=== PATIENT | male | born 1985 | race Two or more races ===

== ENCOUNTER 2019-06-26 16:45 | Inpatient (IN) | payer SELFPAY ==
[~2019-06-26] VITALS: Ht 170.2 cm; Wt 105.2 kg
[2019-06-26] MEDS ORDERED: IV NORMAL SALINE 1000ML BAG 1,000 ML IV ONE ×2 (17:45)
[2019-06-26] MEDS ORDERED: DIPHTH,PERTUSS(ACELL),TET TOX 0.5 ML DISP.SYRIN. VAX IM ONE (17:45)
[2019-06-26 17:49] LABS: BASO # 0.1 x10^3/uL (0.0-0.2); BASO % 1 % (0-3); EOS # 0.2 x10^3/uL (0.0-0.7); EOS % 2 % (0-3); HEMATOCRIT 44.2 % (39.0-53.0); HEMOGLOBIN 15.3 g/dL (13.0-17.5); LYMPH % 14 % (24-48); MEAN CORPUSCULAR HEMOGLOBIN 32 pg (25-35); MEAN CORPUSCULAR HGB CONC 35 g/dL (31-37); MEAN CORPUSCULAR VOLUME 92 fL (79-100); MONO # 1.1 x10^3/uL (0.0-1.1); MONO % 8 % (0-9); NEUT # 10.8 x10^3/uL (1.8-7.7); NEUT % 76 % (31-73); PLATELET COUNT 339 x10^3/uL (140-400); RED BLOOD COUNT 4.82 x10^6/uL (4.30-5.70); RED CELL DISTRIBUTION WIDTH 12.8 % (11.5-14.5); WHITE BLOOD COUNT 14.2 x10^3/uL (4.0-11.0)
--- NOTE | 2019-06-26 17:52 | RAD ---
Two-view right tibia-fibula dated 06/26/2019. No comparison available. Clinical data indication: Cellulitis post laceration. FINDINGS: 2 views left tibia fibula show normal bony alignment. No displaced fracture. No periostitis or bone destruction. There is diffuse soft tissue swelling. IMPRESSION: Soft tissue swelling with no evidence of underlying acute bony abnormality. Electronically signed by: Vinayak Robbins MD (06/26/2019 5:50 PM) [facility]
--- NOTE | 2019-06-26 17:55 | PHYS DOC ---
Past Medical History Past Medical History: No Pertinent History Past Surgical History: No Surgical History Alcohol Use: Heavy Drug Use: Marijuana Adult General Chief Complaint Chief Complaint: CELLULITIS HPI HPI Patient is a 34 year old male who presents with states on April 22 he kicked through window and got a laceration to the back of the right leg which he states he thought healed up fine and then towards the end of April he stated that the leg began to swell and become reddened and itchy and painful. Patient is complaining of pain especially when he is walking or standing on the leg behind the knee. Patient states the rash has now spread to the left lower leg and bilateral forearms. He states they are burning and itching. He rates his pain a 7 out of 10. Review of Systems Review of Systems Constitutional: fever or chills [] Musculoskeletal: Cellulitis to bilateral legs and bilateral forearms causing pain. Denies back pain or joint pain [] Integument: Bilateral cellulitis to legs and forearms. Denies rash or skin lesions [] All other systems were reviewed and found to be within normal limits, except as documented in this note. Current Medications Current Medications Current Medications Medications (Trade) Dose Ordered Sig/Justo Start Time Stop Time Status Last Admin Dose Admin Diphtheria/ Tetanus/Acell Pertussis (Boostrix) 0.5 ml ONCE ONCE 06/26/19 17:45 06/26/19 17:46 DC Dobutamine HCl/ Dextrose 250 ml @ 0 mls/hr CONT PRN 06/26/19 18:15 Cancel Fentanyl Citrate (Fentanyl 2ml Vial) 50 mcg 1X ONCE 06/26/19 18:00 06/26/19 18:01 DC 06/26/19 18:07 50 MCG Ondansetron HCl (Zofran) 4 mg 1X ONCE 06/26/19 18:00 06/26/19 18:01 DC 06/26/19 18:06 4 MG Sodium Chloride 1,000 ml @ 1,000 mls/hr 1X ONCE 06/26/19 17:45 06/26/19 18:44 DC Vancomycin HCl (Vanco Per Pharmacy) 1 each PRN DAILY PRN 06/26/19 18:15 UNV Vancomycin HCl 2 gm/Sodium Chloride 500 ml @ 250 mls/hr 1X ONCE 06/26/19 18:15 06/26/19 20:14 Allergies Allergies Allergies Coded Allergies Type Severity Reaction Last Updated Verified No Known Drug Allergies 06/26/19 No Physical Exam Physical Exam Constitutional: Well developed, well nourished, no acute distress, non-toxic appearance. [] Skin: Bilateral cellulitis to lower legs and forearms. Flaking of skin. Warm, dry, no erythema, no rash. [] Extremities: No tenderness, no cyanosis, no clubbing, ROM intact, right lower leg 3+ and left lower leg 1+ edema. [] Neurologic: Alert and oriented X 3, normal motor function, normal sensory function, no focal deficits noted. [] Psychologic: Affect normal, judgement normal, mood normal. [] Current Patient Data Vital Signs Vital Signs Date Time Temp Pulse Resp B/P (MAP) Pulse Ox O2 Delivery O2 Flow Rate FiO2 06/26/19 17:16 98.5 110 22 140/85 (103) 96 Room Air 98.5 Lab Values Laboratory Tests Test 06/26/19 17:40 06/26/19 18:05 White Blood Count 14.2 x10^3/uL (4.0-11.0) H Red Blood Count 4.82 x10^6/uL (4.30-5.70) Hemoglobin 15.3 g/dL (13.0-17.5) Hematocrit 44.2 % (39.0-53.0) Mean Corpuscular Volume 92 fL (79-100) Mean Corpuscular Hemoglobin 32 pg (25-35) Mean Corpuscular Hemoglobin Concent 35 g/dL (31-37) Red Cell Distribution Width 12.8 % (11.5-14.5) Platelet Count 339 x10^3/uL (140-400) Neutrophils (%) (Auto) 76 % (31-73) H Lymphocytes (%) (Auto) 14 % (24-48) L Monocytes (%) (Auto) 8 % (0-9) Eosinophils (%) (Auto) 2 % (0-3) Basophils (%) (Auto) 1 % (0-3) Neutrophils # (Auto) 10.8 x10^3/uL (1.8-7.7) H Lymphocytes # (Auto) 2.0 x10^3/uL (1.0-4.8) Monocytes # (Auto) 1.1 x10^3/uL (0.0-1.1) Eosinophils # (Auto) 0.2 x10^3/uL (0.0-0.7) Basophils # (Auto) 0.1 x10^3/uL (0.0-0.2) Prothrombin Time 12.4 SEC (11.7-14.0) Prothrombin Time INR 1.0 (0.8-1.1) Sodium Level 140 mmol/L (136-145) Potassium Level 3.4 mmol/L (3.5-5.1) L Chloride Level 103 mmol/L (98-107) Carbon Dioxide Level 23 mmol/L (21-32) Anion Gap 14 (6-14) Blood Urea Nitrogen 8 mg/dL (8-26) Creatinine 1.0 mg/dL (0.7-1.3) Estimated GFR (Cockcroft-Gault) 86.1 BUN/Creatinine Ratio 8 (6-20) Glucose Level 107 mg/dL (70-99) H Lactic Acid Level 2.5 mmol/L (0.4-2.0) H Calcium Level 9.0 mg/dL (8.5-10.1) Total Bilirubin 0.3 mg/dL (0.2-1.0) Aspartate Amino Transferase (AST) 35 U/L (15-37) Alanine Aminotransferase (ALT) 32 U/L (16-63) Alkaline Phosphatase 80 U/L (46-116) Creatine Kinase 771 U/L (39-308) H Total Protein 8.2 g/dL (6.4-8.2) Albumin 4.0 g/dL (3.4-5.0) Albumin/Globulin Ratio 1.0 (1.0-1.7) Procalcitonin < 0.10 ng/mL (0.00-0.10) Urine Collection Type Unknown Urine Color Yellow Urine Clarity Clear Urine pH 6.0 Urine Specific [place] 1.010 Urine Protein Negative mg/dL (NEG-TRACE) Urine Glucose (UA) Negative mg/dL (NEG) Urine Ketones (Stick) Negative mg/dL (NEG) Urine Blood Negative (NEG) Urine Nitrite Negative (NEG) Urine Bilirubin Negative (NEG) Urine Urobilinogen Dipstick 0.2 mg/dL (0.2 mg/dL) Urine Leukocyte Esterase Negative (NEG) Urine RBC 0 /HPF (0-2) Urine WBC 0 /HPF (0-4) Urine Bacteria 0 /HPF (0-FEW) Urine Mucus Slight /LPF Laboratory Tests 06/26/19 17:40 Laboratory Tests 06/26/19 17:40 EKG EKG NSR[] Interpretation Time: [address] Washburn Radiology/Procedures Radiology/Procedures [] Impressions: [id number] [place] [address] IMAGING REPORT Signed PATIENT: SHONNA VALDOVINOS ACCOUNT: [id number] : 1985 LOCATION: ER AGE: 34 SEX: M EXAM STATUS: PRE ER ORD. PHYSICIAN: RICHARD CHRISTIAN APRN REASON: Cellulitis post laceration to calf PROCEDURE: TIBIA FIBULA RIGHT Two-view right tibia-fibula dated 06/26/2019. No comparison available. Clinical data indication: Cellulitis post laceration. FINDINGS: 2 views left tibia fibula show normal bony alignment. No displaced fracture. No periostitis or bone destruction. There is diffuse soft tissue swelling. IMPRESSION: Soft tissue swelling with no evidence of underlying acute bony abnormality. Electronically signed by: Vinayak Robbins MD (06/26/2019 5:50 PM) [facility] DICTATED and SIGNED BY: VINAYAK ROBBINS MD DATE: 06/26/19 [id number] [place] [address] IMAGING REPORT Signed PATIENT: SHONNA VALDOVINOS ACCOUNT: [id number] : 1985 LOCATION: ER AGE: 34 SEX: M EXAM STATUS: REG ER ORD. PHYSICIAN: RICHARD CHRISTIAN APRN REASON: right leg swelling PROCEDURE: VENOUS LOWER EXTREMITY RIGHT Examination: VENOUS LOWER EXTREMITY RIGHT History: Right leg swelling Comparison/Correlation: None FINDINGS: Right lower extremity duplex venous ultrasound exam was performed. Grayscale, color Doppler, and spectral Doppler imaging was performed. Compression and augmentation was performed. The right common femoral vein, superficial femoral vein, popliteal vein, and greater saphenous vein are normal with no evidence of deep venous thrombus. Normal compressibility and augmentation is evident. Right groin lymph node is present with normal echogenicity, contours and a fatty hilum. Smaller right groin lymph nodes also are present. IMPRESSION: No evidence of deep venous thrombus involving the right lower extremity. Right groin lymph nodes are presumably reactive. Electronically signed by: Tae Huerta MD (06/26/2019 6:45 PM) [facility] DICTATED and SIGNED BY: TAE HUERTA MD DATE: 06/26/19 184 Course & Med Decision Making Course & Med Decision Making Right lower leg is reddened from the knee down to the foot with open blisters. There is 3+ swelling in the leg. Patient denies any numbness or tingling but is tender to palpation the whole leg. Due to swelling and was unable to feel a pulse in the pedal. I have ordered an ultrasound. Cap refill seconds. Patient states that 2 weeks ago he ran a fever for about a week that has since gone away. Patient left leg is one plus swollen with a red rash to the lower part of the leg but the whole leg is not reddened compared to the right leg. Pedal pulses strong and present. The rash or cellulitis to the left leg is red and flaking of skin. Bilateral forearms have a red patchy rash that looks to be cellulitis with flaky skin. Patient states very itchy. Lungs are clear to auscultation all lobes. EKG is normal sinus rhythm. Alert And oriented. Ambulatory with a steady gait. Denies abdominal pain, nausea, vomiting, headache, dizziness, diarrhea, numbness or tingling, chest pain, shortness of air. Patient meets sepsis criteria. He has gotten fluids and antibiotics. Dragon Disclaimer Dragon Disclaimer This electronic medical record was generated, in whole or in part, using a voice recognition dictation system. Date and Time of Reassessment Date: Jun 26, 2019 Time: 18:07 Fluid Challenge Is the fluid challenge complet: No IBW Target Volume Used: No BMI > 30: Yes Vital Signs Vital Signs: Vital Signs Date Time Temp Pulse Resp B/P (MAP) Pulse Ox O2 Delivery O2 Flow Rate FiO2 06/26/19 17:16 98.5 110 22 140/85 (103) 96 Room Air 98.5 Temperature Source: Oral Respirations Respiratory Effort: Normal Respiratory Pattern: Normal Cardiovascular Pulse Rhythm: Regular Heart: Nml rate, reg. rhythm Lung Sounds Breath Sounds: Clear Capillary Refil Capillary Refill: Rt Hand > 3 seconds Peripheral Pulse Pulse Location: Radial Pulse Strength: Normal (2+) Pulse Assessment Method: Monitor Integumentary Skin: Warm Skin Moisture: Dry Skin Turgor: Normal Skin Color: warm Fingernail Color: WNL Departure Departure Impression: Primary Impression: Sepsis Additional Impression: Cellulitis Disposition: 09 ADMITTED INPATIENT Admitting Physician: TEE Condition: STABLE Problem Qualifiers Primary Impression: Sepsis Sepsis type: sepsis due to unspecified organism Sepsis acute organ dysfunction status: unspecified Qualified Codes: A41.9 - Sepsis, unspecified organism Additional Impression: Cellulitis Site of cellulitis: extremity Site of cellulitis of extremity: lower extremity Laterality: unspecified laterality Qualified Codes: L03.119 - Cellulitis of unspecified part of limb RICHARD CHRISTIAN [employer] Jun 26, 2019 17:55
[2019-06-26 17:58] LABS: PROTHROMBIN TIME PATIENT 12.4 SEC (11.7-14.0)
[2019-06-26] MEDS ORDERED: ONDANSETRON PF 4 MG/2 ML VIAL. IV ONE (18:00)
[2019-06-26] MEDS ORDERED: fentaNYL PF VIAL 100 MCG/2 ML VIAL IVP ONE (18:00)
[2019-06-26 18:09] LABS: GFR 86.1; POTASSIUM 3.4 mmol/L (3.5-5.1)
[2019-06-26] MEDS ORDERED: VANCOMYCIN 2 GM in IV NORMAL SALINE 500ML BAG 500 ML IV ONE (18:15)
[2019-06-26 18:16] LABS: TOTAL BILIRUBIN 0.3 mg/dL (0.2-1.0); TOTAL PROTEIN 8.2 g/dL (6.4-8.2)
[2019-06-26 18:27] LABS: BILIRUBIN,URINE NEGATIVE (NEG); CLARITY,URINE CLEAR; COLOR,URINE YELLOW; NITRITE,URINE NEGATIVE (NEG); PROTEIN,URINE NEGATIVE (NEG-TRACE); UROBILINOGEN,URINE 0.2 mg/dL (0.2 mg/dL)
[2019-06-26 18:44] LABS: BACTERIA,URINE 0 /HPF (0-FEW); RBC,URINE 0 /HPF (0-2); WBC,URINE 0 /HPF (0-4)
--- NOTE | 2019-06-26 18:48 | RAD ---
Examination: VENOUS LOWER EXTREMITY RIGHT History: Right leg swelling Comparison/Correlation: None FINDINGS: Right lower extremity duplex venous ultrasound exam was performed. Grayscale, color Doppler, and spectral Doppler imaging was performed. Compression and augmentation was performed. The right common femoral vein, superficial femoral vein, popliteal vein, and greater saphenous vein are normal with no evidence of deep venous thrombus. Normal compressibility and augmentation is evident. Right groin lymph node is present with normal echogenicity, contours and a fatty hilum. Smaller right groin lymph nodes also are present. IMPRESSION: No evidence of deep venous thrombus involving the right lower extremity. Right groin lymph nodes are presumably reactive. Electronically signed by: Tae Zavala MD (06/26/2019 6:45 PM) [facility]
[2019-06-26] MEDS ORDERED: PIP/TAZO PER PHARMACY MC PRN (19:00)
[2019-06-26 19:15] LABS: AMPHETAMINE/METHAMPHETAMINE POS (NEG); BARBITURATES NEG (NEG); BENZODIAZEPINES NEG (NEG); CANNABINOIDS POS (NEG); COCAINE NEG (NEG); METHADONE NEG (NEG); OPIATES NEG (NEG); PHENCYCLIDINE NEG (NEG)
[2019-06-26] MEDS ORDERED: PIPERACILLIN/TAZOBACTAM 3.375 GM in IV NORMAL SALINE 50ML 50 ML IV ONE (19:15)
[2019-06-26] MEDS ORDERED: ONDANSETRON PF 4 MG/2 ML VIAL. IV PRN (19:30)
[2019-06-26] MEDS ORDERED: ACETAMINOPHEN 325 MG TABLET. PO PRN (19:30)
[2019-06-26] MEDS: fentaNYL PF VIAL 100 MCG/2 ML VIAL IV PRN (20:06)
[2019-06-26] MEDS: IV NORMAL SALINE 1000ML BAG 1,000 ML IV SCH (20:07)
[2019-06-26 20:30] VITALS: BP 136/87
[2019-06-26] MEDS: VANCOMYCIN PER PHARMACY MC PRN (20:48)
--- NOTE | 2019-06-26 20:57 | NUR ---
Pharmacy Vancomycin Dosing Note S:Consulted to monitor and dose vancomycin started 06/26/19. O:SHONNA VALDOVINOS is a 34 year old M with Cellulitis . Height: 5 feet, 6 inches Weight: 102.438967 kg [place] Body Weight: 63.80 Adjusted Body Weight: 79.12 Dosing Weight: Actual Other Antibiotics: LABS: Last BUN: 8 Last Creatinine: 1.0 Creatinine Clearance: 117 mL/min Last WBC: 14.2 Last Procalcitonin: Tmax (past 24 hours): 98.5 Microbiology: I/O: Drug Levels: Last level: on at Last dose given 06/26/19 at 1914 Vancomycin Dosing: Loading Dose: 2000 mg x1 Dosing Weight: Actual Target Trough: 10-20 A: Based on weight and est. CrCl: P: 1. Give Vancomycin 2000mng, followed by Vancomycin 1500 mg IV q8h. 2. Follow up Trough level on 06/27/19 at 1830. 3. Pharmacy will continue to monitor, follow and adjust therapy as needed. Benny Noe, [facility], 06/26/19 [id number]
[2019-06-26] MEDS: HYDROcodone/APAP 5/325MG 1 TAB TABLET PO PRN (21:46)
[2019-06-26 23:30] VITALS: BP 134/78
[2019-06-27] MEDS: diphenhydrAMINE HCL 25 MG CAPSULE PO PRN ×4 (00:55→22:47)
[2019-06-27] MEDS: PIPERACILLIN/TAZOBACTAM 3.375 GM in IV NORMAL SALINE 50ML 50 ML IV SCH ×4 (01:00→18:38)
[2019-06-27 03:16] VITALS: BP 126/68
[2019-06-27] MEDS: VANCOMYCIN 1.5 GM in IV NORMAL SALINE 500ML BAG 500 ML IV SCH ×3 (03:37→19:38)
[2019-06-27] MEDS: IV NORMAL SALINE 1000ML BAG 1,000 ML IV SCH ×4 (03:38→21:38)
[2019-06-27] MEDS: fentaNYL PF VIAL 100 MCG/2 ML VIAL IV PRN (03:53)
[2019-06-27] MEDS: MORPHINE SULFATE 2 MG/ML VIAL. IV PRN ×3 (06:37→16:26)
[2019-06-27] MEDS: hydrOXYzine 25 MG TABLET PO PRN (06:37)
[2019-06-27 07:00] VITALS: BP 115/80
--- NOTE | 2019-06-27 10:10 | EKG ---
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
--- NOTE | 2019-06-27 10:32 | PDOC ---
Infectious Disease Note Vital Sign Vital Signs Vital Signs Date Time Temp Pulse Resp B/P (MAP) Pulse Ox O2 Delivery O2 Flow Rate FiO2 06/27/19 07:00 98.3 71 18 115/80 (92) 98 Room Air 98.3 Labs Lab Laboratory Tests Test 06/26/19 17:40 06/26/19 18:05 06/26/19 21:10 White Blood Count 14.2 x10^3/uL (4.0-11.0) Red Blood Count 4.82 x10^6/uL (4.30-5.70) Hemoglobin 15.3 g/dL (13.0-17.5) Hematocrit 44.2 % (39.0-53.0) Mean Corpuscular Volume 92 fL (79-100) Mean Corpuscular Hemoglobin 32 pg (25-35) Mean Corpuscular Hemoglobin Concent 35 g/dL (31-37) Red Cell Distribution Width 12.8 % (11.5-14.5) Platelet Count 339 x10^3/uL (140-400) Neutrophils (%) (Auto) 76 % (31-73) Lymphocytes (%) (Auto) 14 % (24-48) Monocytes (%) (Auto) 8 % (0-9) Eosinophils (%) (Auto) 2 % (0-3) Basophils (%) (Auto) 1 % (0-3) Neutrophils # (Auto) 10.8 x10^3/uL (1.8-7.7) Lymphocytes # (Auto) 2.0 x10^3/uL (1.0-4.8) Monocytes # (Auto) 1.1 x10^3/uL (0.0-1.1) Eosinophils # (Auto) 0.2 x10^3/uL (0.0-0.7) Basophils # (Auto) 0.1 x10^3/uL (0.0-0.2) Prothrombin Time 12.4 SEC (11.7-14.0) Prothromb Time International Ratio 1.0 (0.8-1.1) Sodium Level 140 mmol/L (136-145) Potassium Level 3.4 mmol/L (3.5-5.1) Chloride Level 103 mmol/L (98-107) Carbon Dioxide Level 23 mmol/L (21-32) Anion Gap 14 (6-14) Blood Urea Nitrogen 8 mg/dL (8-26) Creatinine 1.0 mg/dL (0.7-1.3) Estimated GFR (Cockcroft-Gault) 86.1 BUN/Creatinine Ratio 8 (6-20) Glucose Level 107 mg/dL (70-99) Lactic Acid Level 2.5 mmol/L (0.4-2.0) 1.1 mmol/L (0.4-2.0) Calcium Level 9.0 mg/dL (8.5-10.1) Total Bilirubin 0.3 mg/dL (0.2-1.0) Aspartate Amino Transf (AST/SGOT) 35 U/L (15-37) Alanine Aminotransferase (ALT/SGPT) 32 U/L (16-63) Alkaline Phosphatase 80 U/L (46-116) Creatine Kinase 771 U/L (39-308) Total Protein 8.2 g/dL (6.4-8.2) Albumin 4.0 g/dL (3.4-5.0) Albumin/Globulin Ratio 1.0 (1.0-1.7) Procalcitonin < 0.10 ng/mL (0.00-0.10) Urine Collection Type Unknown Urine Color Yellow Urine Clarity Clear Urine pH 6.0 Urine Specific [place] 1.010 Urine Protein Negative mg/dL (NEG-TRACE) Urine Glucose (UA) Negative mg/dL (NEG) Urine Ketones (Stick) Negative mg/dL (NEG) Urine Blood Negative (NEG) Urine Nitrite Negative (NEG) Urine Bilirubin Negative (NEG) Urine Urobilinogen Dipstick 0.2 mg/dL (0.2 mg/dL) Urine Leukocyte Esterase Negative (NEG) Urine RBC 0 /HPF (0-2) Urine WBC 0 /HPF (0-4) Urine Bacteria 0 /HPF (0-FEW) Urine Mucus Slight /LPF Urine Opiates Screen Neg (NEG) Urine Methadone Screen Neg (NEG) Urine Barbiturates Neg (NEG) Urine Phencyclidine Screen Neg (NEG) Urine Amphetamine/Methamphetamine Pos (NEG) Urine Benzodiazepines Screen Neg (NEG) Urine Cocaine Screen Neg (NEG) Urine Cannabinoids Screen Pos (NEG) Urine Ethyl Alcohol Pos (NEG) Objective Assessment Rash involving posterior lower extremities bilaterally and arms with superimposed cellulitis -Dose doxy outpatient h/o laceration right lower extremity from kicking a car window, healed. Apr 2019 Leukocytosis, recent steroids Lactic acidosis Substance abuse Heavy alcohol Hypertension Plan Plan of Care Continue vanc and Zosyn Monitor renal function closely Repeat labs in am Wound care team consulted Thank you Pt seen and examined on 06/27 Dermatitis with secondary superimposed cellulitis. Denies any h/o ssti in the past he has used numerous otc skin products including neosporin and creams from [facility] to help healing of the skin ble and upper ext skin lesions consider derm consult for biopsy ? allergic reaction, underwent w/u by Alexis garzon at out and was told that it was negative per pt report will add empiric diflucan local care s/p tetanus shot here avoid picking on skin ZHENG DANIELLE APRN Jun 27, 2019 10:32 BUD PAUL MD Jun 27, 2019 11:41
--- NOTE | 2019-06-27 10:48 | PDOC1 ---
History and Physical Date of Admission Date of Admission DATE: 06/27/19 TIME: 10:48 Identification/Chief Complaint Chief Complaint seen in ER , 34 year old male who presents with states on April 22 he kicked through window and got a laceration to the back of the right leg which he states he thought healed up fine and then towards the end of April he stated that the leg began to swell and become reddened and itchy and painful. Patient is complaining of pain especially when he is walking or standing on the leg behind the knee. Patient states the rash has now spread to the left lower leg and bilateral forearms Past Medical History Past Medical History Past Medical History Past Medical History: No Pertinent History Past Surgical History: No Surgical History Alcohol Use: Heavy Drug Use: Marijuana fhx obesity Family History Family History: Hypertension Social History Smoke: <1 pack per day ALCOHOL: heavy Current Problem List Problem List Problems Medical Problems: (1) Cellulitis Status: Acute (2) Sepsis Status: Acute Current Medications Current Medications Current Medications Diphtheria/ Tetanus/Acell Pertussis (Boostrix) 0.5 ml ONCE ONCE VAX IM Last administered on 06/26/19at 19:19; Start 06/26/19 at 17:45; Stop 06/26/19 at 17:46; Status DC Sodium Chloride 1,000 ml @ 1,000 mls/hr 1X ONCE IV Last administered on 06/26/19 18:05; Start 06/26/19 at 17:45; Stop 06/26/19 at 18:44; Status DC Sodium Chloride 1,000 ml @ 1,000 mls/hr 1X ONCE IV Last administered on 06/26/19 19:14; Start 06/26/19 at 17:45; Stop 06/26/19 at 18:44; Status DC Fentanyl Citrate (Fentanyl 2ml Vial) 50 mcg 1X ONCE IVP Last administered on 06/26/19 18:07; Start 06/26/19 at 18:00; Stop 06/26/19 at 18:01; Status DC Ondansetron HCl (Zofran) 4 mg 1X ONCE IV Last administered on 06/26/19 18:06; Start 06/26/19 at 18:00; Stop 06/26/19 at 18:01; Status DC Vancomycin HCl (Vanco Per Pharmacy) 1 each PRN DAILY PRN MC SEE COMMENTS Last administered on 11/8/19at 20:48; Start 06/26/19 at 18:15 Dobutamine HCl/ Dextrose 250 ml @ 0 mls/hr CONT PRN IV SEE I/O RECORD; Start 06/26/19 at 18:15; Status Cancel Vancomycin HCl 2 gm/Sodium Chloride 500 ml @ 250 mls/hr 1X ONCE IV Last ad ministered on 06/26/19at 19:14; Start 06/26/19 at 18:15; Stop 06/26/19 at 20:14; Status DC Piperacillin Sod/ Tazobactam Sod (Zosyn Per Pharmacy) 1 each PRN DAILY PRN MC SEE COMMENTS; Start 06/26/19 at 19:00 Piperacillin Sod/ Tazobactam Sod 3.375 gm/Sodium Chloride 50 ml @ 100 mls/hr 1X ONCE IV Last administered on 06/26/19at 20:11; Start 06/26/19 at 19:15; Stop 06/26/19 at 19:44; Status DC Ondansetron HCl (Zofran) 4 mg PRN Q8HRS PRN IV NAUSEA/VOMITING; Start 06/26/19 at 19:30; Stop 06/27/19 at 19:29 Fentanyl Citrate (Fentanyl 2ml Vial) 50 mcg PRN Q1HR PRN IV PAIN Last administered on 06/27/19at 03:53; Start 06/26/19 at 19:30; Stop 06/27/19 at 19:29 Sodium Chloride 1,000 ml @ 100 mls/hr Q10H IV Last administered on 06/27/19at 03:38; Start 06/26/19 at 19:26; Stop 06/27/19 at 19:25 Acetaminophen (Tylenol) 650 mg PRN Q4HRS PRN PO FEVER; Start 06/26/19 at 19:30; Stop 06/27/19 at 19:29 Piperacillin Sod/ Tazobactam Sod 3.375 gm/Sodium Chloride 50 ml @ 100 mls/hr Q6HRS IV Last administered on 06/27/19at 06:32; Start 06/27/19 at 00:00 Vancomycin HCl 1.5 gm/Sodium Chloride 500 ml @ 250 mls/hr Q8H IV Last administered on 06/27/19at 03:37; Start 06/27/19 at 03:00 Vancomycin HCl (Vancomycin Trough Level) 1 each 1X ONCE MC ; Start 06/27/19 at 18:30; Stop 06/27/19 at 18:31 Acetaminophen/ Hydrocodone Bitart (Lortab 5/325) 1 tab PRN Q4HRS PRN PO MODERATE PAIN 4-6 Last administered on 06/26/19at 21:46; Start 06/26/19 at 21:30 Diphenhydramine HCl (Benadryl) 25 mg PRN Q6HRS PRN PO MODERATE ITCHING; Start 06/27/19 at 00:45 Diphenhydramine HCl (Benadryl) 50 mg PRN Q6HRS PRN PO SEVERE ITCHING Last administered on 06/27/19at 00:55; Start 06/27/19 at 00:45 Morphine Sulfate (Morphine Sulfate) 2 mg PRN Q2HR PRN IV SEVERE PAIN 7-10 Last administered on 06/27/19at 06:37; Start 06/27/19 at 06:00 Hydroxyzine HCl (Atarax) 25 mg PRN Q6HRS PRN PO ITCHING Last administered on 06/27/19at 06:37; Start 06/27/19 at 06:00 Allergies Allergies: Coded Allergies: No Known Drug Allergies (Unverified , 06/26/19) ROS Review of System Review of Systems Review of Systems Constitutional: fever or chills [] Musculoskeletal: Cellulitis to bilateral legs and bilateral forearms causing pain. Denies back pain or joint pain [] Integument: Bilateral cellulitis to legs and forearms. [] 14 PT systems were reviewed and found to be within normal limits, except as documented Skin: Yes Dry Skin, Yes Skin Lesion Changes Physical Exam Physical Exam Physical Exam Physical Exam Constitutional: Well developed, well nourished, no acute distress, non-toxic appearance. [] Skin: Bilateral cellulitis to lower legs and forearms. Flaking of skin. Warm, dry, no erythema, no rash. [] Extremities: No tenderness, no cyanosis, no clubbing, ROM intact, right lower leg 3+ and left lower leg 1+ edema. [] Neurologic: Alert and oriented X 3, normal motor function, normal sensory function, no focal deficits noted. [] Psychologic: Affect normal, judgement normal, mood normal. [] 3+ swelling in the leg. Patient denies any numbness or tingling but is tender to palpation the whole leg. Due to swelling and was unable to feel a pulse in the pedal. General: Alert, Oriented X3, Cooperative, No acute distress HEENT: Atraumatic Lungs: Clear to auscultation, Normal air movement Heart: S1S2, RRR, no thrills, no rubs Breasts: Not examined Abdomen: Normal bowel sounds, Soft Rectal Exam: not examined PELVIC: Examination not indicated Extremities: No cyanosis Neuro: Normal speech, Strength at 5/5 X4 ext, Cranial nerves 3-12 NL Psych/Mental Status: Mental status NL, Mood NL Vitals Vitals Vital Signs Date Time Temp Pulse Resp B/P (MAP) Pulse Ox O2 Delivery O2 Flow Rate FiO2 06/27/19 07:00 98.3 71 18 115/80 (92) 98 Room Air 98.3 Labs Labs Laboratory Tests Test 06/26/19 17:40 06/26/19 18:05 06/26/19 21:10 White Blood Count 14.2 x10^3/uL (4.0-11.0) Red Blood Count 4.82 x10^6/uL (4.30-5.70) Hemoglobin 15.3 g/dL (13.0-17.5) Hematocrit 44.2 % (39.0-53.0) Mean Corpuscular Volume 92 fL (79-100) Mean Corpuscular Hemoglobin 32 pg (25-35) Mean Corpuscular Hemoglobin Concent 35 g/dL (31-37) Red Cell Distribution Width 12.8 % (11.5-14.5) Platelet Count 339 x10^3/uL (140-400) Neutrophils (%) (Auto) 76 % (31-73) Lymphocytes (%) (Auto) 14 % (24-48) Monocytes (%) (Auto) 8 % (0-9) Eosinophils (%) (Auto) 2 % (0-3) Basophils (%) (Auto) 1 % (0-3) Neutrophils # (Auto) 10.8 x10^3/uL (1.8-7.7) Lymphocytes # (Auto) 2.0 x10^3/uL (1.0-4.8) Monocytes # (Auto) 1.1 x10^3/uL (0.0-1.1) Eosinophils # (Auto) 0.2 x10^3/uL (0.0-0.7) Basophils # (Auto) 0.1 x10^3/uL (0.0-0.2) Prothrombin Time 12.4 SEC (11.7-14.0) Prothromb Time International Ratio 1.0 (0.8-1.1) Sodium Level 140 mmol/L (136-145) Potassium Level 3.4 mmol/L (3.5-5.1) Chloride Level 103 mmol/L (98-107) Carbon Dioxide Level 23 mmol/L (21-32) Anion Gap 14 (6-14) Blood Urea Nitrogen 8 mg/dL (8-26) Creatinine 1.0 mg/dL (0.7-1.3) Estimated GFR (Cockcroft-Gault) 86.1 BUN/Creatinine Ratio 8 (6-20) Glucose Level 107 mg/dL (70-99) Lactic Acid Level 2.5 mmol/L (0.4-2.0) 1.1 mmol/L (0.4-2.0) Calcium Level 9.0 mg/dL (8.5-10.1) Total Bilirubin 0.3 mg/dL (0.2-1.0) Aspartate Amino Transf (AST/SGOT) 35 U/L (15-37) Alanine Aminotransferase (ALT/SGPT) 32 U/L (16-63) Alkaline Phosphatase 80 U/L (46-116) Creatine Kinase 771 U/L (39-308) Total Protein 8.2 g/dL (6.4-8.2) Albumin 4.0 g/dL (3.4-5.0) Albumin/Globulin Ratio 1.0 (1.0-1.7) Procalcitonin < 0.10 ng/mL (0.00-0.10) Urine Collection Type Unknown Urine Color Yellow Urine Clarity Clear Urine pH 6.0 Urine Specific [place] 1.010 Urine Protein Negative mg/dL (NEG-TRACE) Urine Glucose (UA) Negative mg/dL (NEG) Urine Ketones (Stick) Negative mg/dL (NEG) Urine Blood Negative (NEG) Urine Nitrite Negative (NEG) Urine Bilirubin Negative (NEG) Urine Urobilinogen Dipstick 0.2 mg/dL (0.2 mg/dL) Urine Leukocyte Esterase Negative (NEG) Urine RBC 0 /HPF (0-2) Urine WBC 0 /HPF (0-4) Urine Bacteria 0 /HPF (0-FEW) Urine Mucus Slight /LPF Urine Opiates Screen Neg (NEG) Urine Methadone Screen Neg (NEG) Urine Barbiturates Neg (NEG) Urine Phencyclidine Screen Neg (NEG) Urine Amphetamine/Methamphetamine Pos (NEG) Urine Benzodiazepines Screen Neg (NEG) Urine Cocaine Screen Neg (NEG) Urine Cannabinoids Screen Pos (NEG) Urine Ethyl Alcohol Pos (NEG) Laboratory Tests Test 06/26/19 17:40 06/26/19 18:05 06/26/19 21:10 White Blood Count 14.2 x10^3/uL (4.0-11.0) Red Blood Count 4.82 x10^6/uL (4.30-5.70) Hemoglobin 15.3 g/dL (13.0-17.5) Hematocrit 44.2 % (39.0-53.0) Mean Corpuscular Volume 92 fL (79-100) Mean Corpuscular Hemoglobin 32 pg (25-35) Mean Corpuscular Hemoglobin Concent 35 g/dL (31-37) Red Cell Distribution Width 12.8 % (11.5-14.5) Platelet Count 339 x10^3/uL (140-400) Neutrophils (%) (Auto) 76 % (31-73) Lymphocytes (%) (Auto) 14 % (24-48) Monocytes (%) (Auto) 8 % (0-9) Eosinophils (%) (Auto) 2 % (0-3) Basophils (%) (Auto) 1 % (0-3) Neutrophils # (Auto) 10.8 x10^3/uL (1.8-7.7) Lymphocytes # (Auto) 2.0 x10^3/uL (1.0-4.8) Monocytes # (Auto) 1.1 x10^3/uL (0.0-1.1) Eosinophils # (Auto) 0.2 x10^3/uL (0.0-0.7) Basophils # (Auto) 0.1 x10^3/uL (0.0-0.2) Prothrombin Time 12.4 SEC (11.7-14.0) Prothromb Time International Ratio 1.0 (0.8-1.1) Sodium Level 140 mmol/L (136-145) Potassium Level 3.4 mmol/L (3.5-5.1) Chloride Level 103 mmol/L (98-107) Carbon Dioxide Level 23 mmol/L (21-32) Anion Gap 14 (6-14) Blood Urea Nitrogen 8 mg/dL (8-26) Creatinine 1.0 mg/dL (0.7-1.3) Estimated GFR (Cockcroft-Gault) 86.1 BUN/Creatinine Ratio 8 (6-20) Glucose Level 107 mg/dL (70-99) Lactic Acid Level 2.5 mmol/L (0.4-2.0) 1.1 mmol/L (0.4-2.0) Calcium Level 9.0 mg/dL (8.5-10.1) Total Bilirubin 0.3 mg/dL (0.2-1.0) Aspartate Amino Transf (AST/SGOT) 35 U/L (15-37) Alanine Aminotransferase (ALT/SGPT) 32 U/L (16-63) Alkaline Phosphatase 80 U/L (46-116) Creatine Kinase 771 U/L (39-308) Total Protein 8.2 g/dL (6.4-8.2) Albumin 4.0 g/dL (3.4-5.0) Albumin/Globulin Ratio 1.0 (1.0-1.7) Procalcitonin < 0.10 ng/mL (0.00-0.10) Urine Collection Type Unknown Urine Color Yellow Urine Clarity Clear Urine pH 6.0 Urine Specific [place] 1.010 Urine Protein Negative mg/dL (NEG-TRACE) Urine Glucose (UA) Negative mg/dL (NEG) Urine Ketones (Stick) Negative mg/dL (NEG) Urine Blood Negative (NEG) Urine Nitrite Negative (NEG) Urine Bilirubin Negative (NEG) Urine Urobilinogen Dipstick 0.2 mg/dL (0.2 mg/dL) Urine Leukocyte Esterase Negative (NEG) Urine RBC 0 /HPF (0-2) Urine WBC 0 /HPF (0-4) Urine Bacteria 0 /HPF (0-FEW) Urine Mucus Slight /LPF Urine Opiates Screen Neg (NEG) Urine Methadone Screen Neg (NEG) Urine Barbiturates Neg (NEG) Urine Phencyclidine Screen Neg (NEG) Urine Amphetamine/Methamphetamine Pos (NEG) Urine Benzodiazepines Screen Neg (NEG) Urine Cocaine Screen Neg (NEG) Urine Cannabinoids Screen Pos (NEG) Urine Ethyl Alcohol Pos (NEG) Images Images Two-view right tibia-fibula dated 06/26/2019. No comparison available. Clinical data indication: Cellulitis post laceration. FINDINGS: 2 views left tibia fibula show normal bony alignment. No displaced fracture. No periostitis or bone destruction. There is diffuse soft tissue swelling. IMPRESSION: Soft tissue swelling with no evidence of underlying acute bony abnormality. Electronically signed by: Denisa Robbins MD (06/26/2019 5:50 PM) [facility] DICTATED and SIGNED BY: DENISA ROBBINS MD DATE: 06/26/19 1750 VTE Prophylaxis Ordered VTE Prophylaxis Devices: No VTE Pharmacological Prophylaxi: Yes Assessment/Plan Assessment/Plan Impression: Sepsis ALCOHOL ABUSE Cellulitis LEFT LEG 2 views left tibia fibula show normal bony alignment. No displaced fracture. No periostitis or bone destruction. There is diffuse soft tissue swelling. MORBID OBESITY LACTIC ACIDOSIS Laceration right lower extremity from kicking a car window, healed. PLAN ADMIT ANTIBIOTICS, ZOSYN, VANC ID CONSULT Wound care consulted BLOOD CULTURE ALCOHOL WITHDRAWAL PRECAUTIONS PRN empiric diflucan 56 MIN PT EXAM, CHART REVIEW, > 50% OF TIME SPENT WITH EXAM, CHART REVIEW, PT CARE COORDINATION ERIK CASTRO MD Jun 27, 2019 10:48
[2019-06-27] MEDS ORDERED: ALBUTEROL SULFATE 2.5 MG/3 ML NEBU. NEB PRN ×2 (11:15→13:00)
[2019-06-27] MEDS ORDERED: guaiFENesin ORAL 200 MG/10 ML LIQUID. PO PRN ×2 (11:15→13:00)
[2019-06-27] MEDS ORDERED: ONDANSETRON PF 4 MG/2 ML VIAL. IV PRN ×2 (11:15→13:00)
[2019-06-27] MEDS ORDERED: DOCUSATE SODIUM 100 MG CAPSULE. PO PRN ×2 (11:15→13:00)
[2019-06-27] MEDS ORDERED: cloNIDine HCL 0.1 MG TABLET PO PRN ×2 (11:15→13:00)
[2019-06-27] MEDS ORDERED: 0.9 % SODIUM CHLORIDE 10 ML DISP.SYRIN. IV PRN ×2 (11:15→13:00)
[2019-06-27] MEDS ORDERED: MAG HYDROX/ALUMINUM HYD/SIMETH 30 ML ORAL.SUSP PO PRN ×2 (11:15→13:00)
[2019-06-27] MEDS ORDERED: ACETAMINOPHEN 325 MG TABLET. PO PRN ×2 (11:15→13:00)
[2019-06-27 11:30] VITALS: BP 130/80
[2019-06-27] MEDS: HYDROcodone/APAP 5/325MG 1 TAB TABLET PO PRN ×2 (11:45→21:30)
[2019-06-27] MEDS ORDERED: IV NORMAL SALINE 1000ML BAG 1,000 ML IV SCH (12:53)
[2019-06-27] MEDS ORDERED: LORazepam 0.5 MG TABLET PO PRN (13:00)
--- NOTE | 2019-06-27 13:04 | CONS ---
DATE OF CONSULTATION: REFERRING PHYSICIAN: Corrie Novak APRN REASON FOR CONSULTATION: Cellulitis. HISTORY OF PRESENT ILLNESS: This patient is a 34-year-old male who on 04/22 kicked a car window with his right leg resulting in a laceration on the posterior aspect of his ankle. He says he frequently washed the area with water and wrapped it in gauze. He traveled down to [place], swam in the ocean. He felt the wound was healing. Several weeks later while sleeping, his leg started to itch. He scratched some skin off and since has developed a rash primarily on the right posterior lower leg. He tried Neosporin and kept the area covered. He says as long as the area is kept moist, the pain is better controlled. Over the last week or so, he has developed a similar rash, developed on both arms and now left lower leg posteriorly. He was seen by urgent care and prescribed antihistamines and steroids for possible allergic reaction with minimal relief. He was again seen on followup. He was dosed with doxycycline with no relief. He has since been admitted and is currently on vancomycin and Zosyn. The patient says when he first cut his leg, he had some fevers and chills that has since settled down. About that time, his and children were also sick. He denies nausea, vomiting or diarrhea. Denies shortness of air, cough or chest discomfort. Denies headache, confusion, or sinus drainage. Denies joint pains. Denies dysuria, frequency or urgency. Denies history of skin infections. Denies other than the recent doxycycline, no other antibiotics within the last several months reported. PAST MEDICAL HISTORY: No significant past medical history. PAST SURGICAL HISTORY: Appendectomy. SOCIAL HISTORY: The patient is . He has a dog. 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 History of substance abuse and drinking alcohol heavily. ALLERGIES: No known drug allergies. MEDICATIONS: Vancomycin and Zosyn. Other medications are available and have been reviewed on the OCT. REVIEW OF SYSTEMS: Per HPI, otherwise all other review of systems are negative. PHYSICAL EXAMINATION: VITAL SIGNS: Temperature is 98.3, blood pressure 115/80, heart rate is 71, respiratory rate 18, pulse oximetry 98% on room air. GENERAL: The patient is propped up in bed, alert, no apparent distress. HEENT: Pupils equally round. Oropharynx pink and moist. NECK: Supple. LUNGS: Clear to auscultation. HEART: S1, S2. ABDOMEN: Obese, soft, nontender with bowel sounds present. EXTREMITIES: No gross edema or cyanosis. He has an erythematous type rash with peeling skin involving both forearms and lower extremities posteriorly. SKIN: Warm to touch. NEUROLOGIC: Alert and answering questions appropriately. LABORATORY DATA: Recent WBC 14.2, hemoglobin 15.3, platelets 339,000. Creatinine 1.0, BUN 8. Sodium 140, potassium 3.4. Lactic acid 1.1 from 2.5 on admission. Total bilirubin 0.3, AST 35, ALT 32. Procalcitonin less than 0.10. Urinalysis unremarkable for infection. Urine toxicology positive for cannabinoids, amphetamine/methamphetamine. Blood cultures pending. Tibia/fibula x-ray showed soft tissue swelling with no evidence of underlying acute bony abnormality. Lower extremity ultrasound showed no evidence of DVT involving the right lower extremity. Right groin lymph nodes are presumably reactive. IMPRESSION: 1. Dermatitis with secondary superimposed cellulitis involving lower extremities bilaterally and arms. 2. History of laceration of right lower extremity from kicking a car window, healed. 3. Leukocytosis, recent steroids. 4. Lactic acidosis. 5. Substance abuse. 6. Heavy alcohol. 7. Hypertension. PLAN: 1. Continue vancomycin, Zosyn and we will add fluconazole. 2. Monitor renal function closely. 3. Repeat labs in the morning. 4. Wound care team has been consulted. 5. Consider a Dermatology consult for biopsy. He did have a tetanus shot here. We will continue to follow. Thank you, Corrie Novak, for asking us to participate in this patient's care. Should you have further questions or concerns, please call. The patient was seen and examined and plan of care implemented by Dr. Ike Paul. BUD PAUL MD DR: BHAVESH/aisha JOB#: [id number] / [id number] ASHLEY
[2019-06-27 15:31] VITALS: BP 130/77
[2019-06-27] MEDS: FLUCONAZOLE 100 MG TABLET. PO SCH (16:22)
[2019-06-27 18:30] LABS: VANC TR 18.8 mcg/mL (10.0-20.0)
[2019-06-27 19:06] VITALS: BP 110/52
[2019-06-27] MEDS: VANCOMYCIN PER PHARMACY MC PRN (20:45)
--- NOTE | 2019-06-27 20:46 | NUR ---
Pharmacy Vancomycin Dosing Note S: Consulted to monitor and dose vancomycin started 06/26/19. O: SHONNA VALDOVINOS is a 34 year old M with Cellulitis, . Other Antibiotics: ZOSYN LABS: Last BUN: 8 Last Creatinine: 1.0 Creatinine Clearance: 117 mL/min Last WBC: 14.2 Tmax (past 24 hours): 98.5 Drug Levels: Last Trough level: 18.8 on 06/27/19 at 1800 Last dose given 06/27/19 at 1938 Vancomycin Dosing: Dosing Weight: Actual Target Trough: 10-20 A: Based on: VANCO dosing guidelines P: 1. Continue Vancomycin 1500 mg IV q8h 2. Follow up Trough level on 06/27/19 at 1830 3. Pharmacy will continue to monitor, follow and adjust therapy as needed. GERMÁN RICHARDSON [facility], 06/27/[id number]
[2019-06-27] MEDS: LORazepam 0.5 MG TABLET PO PRN (21:29)
[2019-06-27] MEDS: LACTOBACILLUS RHAMNOSUS GG 1 CAPSULE. PO SCH (21:30)
[2019-06-27 23:14] VITALS: BP 110/64
[2019-06-28] VITALS (7 sets, daily range): BP systolic 101–137; BP diastolic 55–79
[2019-06-28] MEDS: PIPERACILLIN/TAZOBACTAM 3.375 GM in IV NORMAL SALINE 50ML 50 ML IV SCH ×4 (00:17→17:44)
[2019-06-28] MEDS: VANCOMYCIN 1.5 GM in IV NORMAL SALINE 500ML BAG 500 ML IV SCH ×2 (03:09→10:04)
[2019-06-28] MEDS: HYDROcodone/APAP 5/325MG 1 TAB TABLET PO PRN ×3 (05:40→20:14)
[2019-06-28] MEDS: hydrOXYzine 25 MG TABLET PO PRN (05:40)
[2019-06-28 08:53] LABS: HEMATOCRIT 41.3 % (39.0-53.0); HEMOGLOBIN 14.1 g/dL (13.0-17.5); RED BLOOD COUNT 4.44 x10^6/uL (4.30-5.70); RED CELL DISTRIBUTION WIDTH 12.9 % (11.5-14.5); WHITE BLOOD COUNT 7.7 x10^3/uL (4.0-11.0)
[2019-06-28] MEDS ORDERED: ENOXAPARIN 40 MG/0.4 ML SYRINGE. SQ SCH (09:00)
[2019-06-28 09:15] LABS: CALCIUM 8.6 mg/dL (8.5-10.1); CREATININE 1.1 mg/dL (0.7-1.3); GFR 77.1
[2019-06-28] MEDS: FLUCONAZOLE 100 MG TABLET. PO SCH (10:04)
[2019-06-28] MEDS: LACTOBACILLUS RHAMNOSUS GG 1 CAPSULE. PO SCH ×2 (10:04→20:14)
[2019-06-28] MEDS: ENOXAPARIN 40 MG/0.4 ML SYRINGE. SQ SCH (10:05)
--- NOTE | 2019-06-28 11:22 | PDOC ---
Infectious Disease Note Subjective Subjective c/o right leg pain with standing/walking Feels rash some better, less red on arms No F/C/S/N/V/D ROS ROS per HPI Vital Sign Vital Signs Vital Signs Date Time Temp Pulse Resp B/P (MAP) Pulse Ox O2 Delivery O2 Flow Rate FiO2 06/28/19 08:00 Room Air 06/28/19 07:00 97.7 63 16 105/60 (75) 97 97.7 Physical Exam PHYSICAL EXAM GENERAL: Propped up in bed, alert, no apparent distress. HEENT: Oropharynx pink and moist. NECK: Supple. LUNGS: Clear to auscultation. HEART: S1, S2. ABDOMEN: Obese, soft, nontender with bowel sounds present. EXTREMITIES: No gross edema or cyanosis. He has an erythematous type rash with peeling skin involving both forearms and lower extremities posteriorly, (RLE > LLE) arms look less red SKIN: Warm to touch. NEUROLOGIC: Alert and answering questions appropriately. PIV Labs Lab Laboratory Tests Test 06/27/19 18:00 06/28/19 07:45 Vancomycin Level Trough 18.8 mcg/mL (10.0-20.0) Vancomycin Last Dose Date [id number] Vancomycin Last Dose Time 1100 White Blood Count 7.7 x10^3/uL (4.0-11.0) Red Blood Count 4.44 x10^6/uL (4.30-5.70) Hemoglobin 14.1 g/dL (13.0-17.5) Hematocrit 41.3 % (39.0-53.0) Mean Corpuscular Volume 93 fL (79-100) Mean Corpuscular Hemoglobin 32 pg (25-35) Mean Corpuscular Hemoglobin Concent 34 g/dL (31-37) Red Cell Distribution Width 12.9 % (11.5-14.5) Platelet Count 280 x10^3/uL (140-400) Sodium Level 143 mmol/L (136-145) Potassium Level 4.0 mmol/L (3.5-5.1) Chloride Level 109 mmol/L (98-107) Carbon Dioxide Level 26 mmol/L (21-32) Anion Gap 8 (6-14) Blood Urea Nitrogen 10 mg/dL (8-26) Creatinine 1.1 mg/dL (0.7-1.3) Estimated GFR (Cockcroft-Gault) 77.1 Glucose Level 87 mg/dL (70-99) Calcium Level 8.6 mg/dL (8.5-10.1) Micro Microbiology 06/26/19 Blood Culture - Preliminary, Resulted NO GROWTH AFTER 1 DAY Objective Assessment Dermatitis with secondary superimposed cellulitis. Denies any h/o ssti in the past -Dose doxy outpatient h/o laceration right lower extremity from kicking a car window, healed. Leukocytosis, recent steroids Lactic acidosis Substance abuse Heavy alcohol Hypertension Plan Plan of Care Continue Vanc, Zosyn and fluconazole Monitor renal function closely Trough 18.8 Probiotics Wound care team consulted consider derm consult for biopsy ? allergic reaction, underwent w/u by Alexis garzon at outpt and was told that it was negative per pt report local care s/p tetanus shot here avoid picking on skin DC Vanc, start empiric zyvox Patient seen and examined. Labs, micro, and chart reviewed. D/W ZHENG MENDOZA APRN Jun 28, 2019 11:21 BUD PAUL MD Jun 28, 2019 12:35
--- NOTE | 2019-06-28 11:27 | PDOC ---
PROGRESS NOTES History of Present Illness History of Present Illness Assessment/Plan Assessment/Plan Impression: Sepsis HX ALCOHOL ABUSE Cellulitis LEFT LEG 2 views left tibia fibula show normal bony alignment. No displaced fracture. No periostitis or bone destruction. There is diffuse soft tissue swelling. MORBID OBESITY LACTIC ACIDOSIS Laceration right lower extremity from kicking a car window, healed. PLAN ADMIT ANTIBIOTICS, ZOSYN, VANC ID CONSULT Wound care consulted BLOOD CULTURE HX ALCOHOL WITHDRAWAL PRECAUTIONS PRN empiric diflucan 11-10 LE RASH REMAINS SEVERE WITH INFLAMMATION, SKIN FISSURING RIGHT CALF 37 MIN PT EXAM, CHART REVIEW, > 50% OF TIME SPENT WITH EXAM, CHART REVIEW, PT CARE COORDINATION Vitals Vitals Vital Signs Date Time Temp Pulse Resp B/P (MAP) Pulse Ox O2 Delivery O2 Flow Rate FiO2 06/28/19 08:00 Room Air 06/28/19 07:00 97.7 63 16 105/60 (75) 97 97.7 Physical Exam Physical Exam GENERAL: Propped up in bed, alert, no apparent distress. HEENT: Oropharynx pink and moist. NECK: Supple. LUNGS: Clear to auscultation. HEART: S1, S2. ABDOMEN: Obese, soft, nontender with bowel sounds present. EXTREMITIES: No gross edema or cyanosis. He has a SEVERE erythematous type rash with peeling skin involving both forearms and lower extremities posteriorly, (RLE > LLE) arms look less red SKIN: Warm to touch. NEUROLOGIC: Alert and answering questions appropriately. PIV General: Alert, Oriented X3, Cooperative, No acute distress Abdomen: Normal bowel sounds, Soft Extremities: No cyanosis Labs LABS Laboratory Tests Test 06/27/19 18:00 06/28/19 07:45 Vancomycin Level Trough 18.8 mcg/mL (10.0-20.0) Vancomycin Last Dose Date [id number] Vancomycin Last Dose Time 1100 White Blood Count 7.7 x10^3/uL (4.0-11.0) Red Blood Count 4.44 x10^6/uL (4.30-5.70) Hemoglobin 14.1 g/dL (13.0-17.5) Hematocrit 41.3 % (39.0-53.0) Mean Corpuscular Volume 93 fL (79-100) Mean Corpuscular Hemoglobin 32 pg (25-35) Mean Corpuscular Hemoglobin Concent 34 g/dL (31-37) Red Cell Distribution Width 12.9 % (11.5-14.5) Platelet Count 280 x10^3/uL (140-400) Sodium Level 143 mmol/L (136-145) Potassium Level 4.0 mmol/L (3.5-5.1) Chloride Level 109 mmol/L (98-107) Carbon Dioxide Level 26 mmol/L (21-32) Anion Gap 8 (6-14) Blood Urea Nitrogen 10 mg/dL (8-26) Creatinine 1.1 mg/dL (0.7-1.3) Estimated GFR (Cockcroft-Gault) 77.1 Glucose Level 87 mg/dL (70-99) Calcium Level 8.6 mg/dL (8.5-10.1) Assessment and Plan Assessmemt and Plan Problems Medical Problems: (1) Cellulitis Status: Acute (2) Sepsis Status: Acute Comment Review of Relevant I have reviewed the following items rafa (where applicable) has been applied. Labs Laboratory Tests Test 06/26/19 17:40 06/26/19 18:05 06/26/19 21:10 06/27/19 18:00 White Blood Count 14.2 x10^3/uL (4.0-11.0) Red Blood Count 4.82 x10^6/uL (4.30-5.70) Hemoglobin 15.3 g/dL (13.0-17.5) Hematocrit 44.2 % (39.0-53.0) Mean Corpuscular Volume 92 fL (79-100) Mean Corpuscular Hemoglobin 32 pg (25-35) Mean Corpuscular Hemoglobin Concent 35 g/dL (31-37) Red Cell Distribution Width 12.8 % (11.5-14.5) Platelet Count 339 x10^3/uL (140-400) Neutrophils (%) (Auto) 76 % (31-73) Lymphocytes (%) (Auto) 14 % (24-48) Monocytes (%) (Auto) 8 % (0-9) Eosinophils (%) (Auto) 2 % (0-3) Basophils (%) (Auto) 1 % (0-3) Neutrophils # (Auto) 10.8 x10^3/uL (1.8-7.7) Lymphocytes # (Auto) 2.0 x10^3/uL (1.0-4.8) Monocytes # (Auto) 1.1 x10^3/uL (0.0-1.1) Eosinophils # (Auto) 0.2 x10^3/uL (0.0-0.7) Basophils # (Auto) 0.1 x10^3/uL (0.0-0.2) Prothrombin Time 12.4 SEC (11.7-14.0) Prothromb Time International Ratio 1.0 (0.8-1.1) Sodium Level 140 mmol/L (136-145) Potassium Level 3.4 mmol/L (3.5-5.1) Chloride Level 103 mmol/L (98-107) Carbon Dioxide Level 23 mmol/L (21-32) Anion Gap 14 (6-14) Blood Urea Nitrogen 8 mg/dL (8-26) Creatinine 1.0 mg/dL (0.7-1.3) Estimated GFR (Cockcroft-Gault) 86.1 BUN/Creatinine Ratio 8 (6-20) Glucose Level 107 mg/dL (70-99) Lactic Acid Level 2.5 mmol/L (0.4-2.0) 1.1 mmol/L (0.4-2.0) Calcium Level 9.0 mg/dL (8.5-10.1) Total Bilirubin 0.3 mg/dL (0.2-1.0) Aspartate Amino Transf (AST/SGOT) 35 U/L (15-37) Alanine Aminotransferase (ALT/SGPT) 32 U/L (16-63) Alkaline Phosphatase 80 U/L (46-116) Creatine Kinase 771 U/L (39-308) Total Protein 8.2 g/dL (6.4-8.2) Albumin 4.0 g/dL (3.4-5.0) Albumin/Globulin Ratio 1.0 (1.0-1.7) Procalcitonin < 0.10 ng/mL (0.00-0.10) Urine Collection Type Unknown Urine Color Yellow Urine Clarity Clear Urine pH 6.0 Urine Specific [place] 1.010 Urine Protein Negative mg/dL (NEG-TRACE) Urine Glucose (UA) Negative mg/dL (NEG) Urine Ketones (Stick) Negative mg/dL (NEG) Urine Blood Negative (NEG) Urine Nitrite Negative (NEG) Urine Bilirubin Negative (NEG) Urine Urobilinogen Dipstick 0.2 mg/dL (0.2 mg/dL) Urine Leukocyte Esterase Negative (NEG) Urine RBC 0 /HPF (0-2) Urine WBC 0 /HPF (0-4) Urine Bacteria 0 /HPF (0-FEW) Urine Mucus Slight /LPF Urine Opiates Screen Neg (NEG) Urine Methadone Screen Neg (NEG) Urine Barbiturates Neg (NEG) Urine Phencyclidine Screen Neg (NEG) Urine Amphetamine/Methamphetamine Pos (NEG) Urine Benzodiazepines Screen Neg (NEG) Urine Cocaine Screen Neg (NEG) Urine Cannabinoids Screen Pos (NEG) Urine Ethyl Alcohol Pos (NEG) Vancomycin Level Trough 18.8 mcg/mL (10.0-20.0) Vancomycin Last Dose Date [id number] Vancomycin Last Dose Time 1100 Test 06/28/19 07:45 White Blood Count 7.7 x10^3/uL (4.0-11.0) Red Blood Count 4.44 x10^6/uL (4.30-5.70) Hemoglobin 14.1 g/dL (13.0-17.5) Hematocrit 41.3 % (39.0-53.0) Mean Corpuscular Volume 93 fL (79-100) Mean Corpuscular Hemoglobin 32 pg (25-35) Mean Corpuscular Hemoglobin Concent 34 g/dL (31-37) Red Cell Distribution Width 12.9 % (11.5-14.5) Platelet Count 280 x10^3/uL (140-400) Sodium Level 143 mmol/L (136-145) Potassium Level 4.0 mmol/L (3.5-5.1) Chloride Level 109 mmol/L (98-107) Carbon Dioxide Level 26 mmol/L (21-32) Anion Gap 8 (6-14) Blood Urea Nitrogen 10 mg/dL (8-26) Creatinine 1.1 mg/dL (0.7-1.3) Estimated GFR (Cockcroft-Gault) 77.1 Glucose Level 87 mg/dL (70-99) Calcium Level 8.6 mg/dL (8.5-10.1) Laboratory Tests Test 06/27/19 18:00 06/28/19 07:45 Vancomycin Level Trough 18.8 mcg/mL (10.0-20.0) Vancomycin Last Dose Date [id number] Vancomycin Last Dose Time 1100 White Blood Count 7.7 x10^3/uL (4.0-11.0) Red Blood Count 4.44 x10^6/uL (4.30-5.70) Hemoglobin 14.1 g/dL (13.0-17.5) Hematocrit 41.3 % (39.0-53.0) Mean Corpuscular Volume 93 fL (79-100) Mean Corpuscular Hemoglobin 32 pg (25-35) Mean Corpuscular Hemoglobin Concent 34 g/dL (31-37) Red Cell Distribution Width 12.9 % (11.5-14.5) Platelet Count 280 x10^3/uL (140-400) Sodium Level 143 mmol/L (136-145) Potassium Level 4.0 mmol/L (3.5-5.1) Chloride Level 109 mmol/L (98-107) Carbon Dioxide Level 26 mmol/L (21-32) Anion Gap 8 (6-14) Blood Urea Nitrogen 10 mg/dL (8-26) Creatinine 1.1 mg/dL (0.7-1.3) Estimated GFR (Cockcroft-Gault) 77.1 Glucose Level 87 mg/dL (70-99) Calcium Level 8.6 mg/dL (8.5-10.1) Microbiology 06/26/19 Blood Culture - Preliminary, Resulted NO GROWTH AFTER 1 DAY Medications Current Medications Diphtheria/ Tetanus/Acell Pertussis (Boostrix) 0.5 ml ONCE ONCE VAX IM Last administered on 06/26/19at 19:19; Start 06/26/19 at 17:45; Stop 06/26/19 at 17:46 ; Status DC Sodium Chloride 1,000 ml @ 1,000 mls/hr 1X ONCE IV Last administered on 06/26/19 18:05; Start 06/26/19 at 17:45; Stop 06/26/19 at 18:44; Status DC Sodium Chloride 1,000 ml @ 1,000 mls/hr 1X ONCE IV Last administered on 06/26/19 19:14; Start 06/26/19 at 17:45; Stop 06/26/19 at 18:44; Status DC Fentanyl Citrate (Fentanyl 2ml Vial) 50 mcg 1X ONCE IVP Last administered on 06/26/19at 18:07; Start 06/26/19 at 18:00; Stop 06/26/19 at 18:01; Status DC Ondansetron HCl (Zofran) 4 mg 1X ONCE IV Last administered on 06/26/19at 18:06; Start 06/26/19 at 18:00; Stop 06/26/19 at 18:01; Status DC Vancomycin HCl (Vanco Per Pharmacy) 1 each PRN DAILY PRN MC SEE COMMENTS Last administered on 06/27/19at 20:45; Start 06/26/19 at 18:15 Dobutamine HCl/ Dextrose 250 ml @ 0 mls/hr CONT PRN IV SEE I/O RECORD; Start 06/26/19 at 18:15; Status Cancel Vancomycin HCl 2 gm/Sodium Chloride 500 ml @ 250 mls/hr 1X ONCE IV Last administered on 06/26/19at 19:14; Start 06/26/19 at 18:15; Stop 06/26/19 at 20:14; Status DC Piperacillin Sod/ Tazobactam Sod (Zosyn Per Pharmacy) 1 each PRN DAILY PRN MC SEE COMMENTS; Start 06/26/19 at 19:00 Piperacillin Sod/ Tazobactam Sod 3.375 gm/Sodium Chloride 50 ml @ 100 mls/hr 1X ONCE IV Last administered on 06/26/19 20:11; Start 06/26/19 at 19:15; Stop 06/26/19 at 19:44; Status DC Ondansetron HCl (Zofran) 4 mg PRN Q8HRS PRN IV NAUSEA/VOMITING; Start 06/26/19 at 19:30; Stop 06/27/19 at 16:38; Status DC Fentanyl Citrate (Fentanyl 2ml Vial) 50 mcg PRN Q1HR PRN IV PAIN Last admi nistered on 06/27/19at 03:53; Start 06/26/19 at 19:30; Stop 06/27/19 at 19:29; Status DC Sodium Chloride 1,000 ml @ 100 mls/hr Q10H IV Last administered on 06/27/19at 18:39; Start 06/26/19 at 19:26; Stop 06/27/19 at 19:25; Status DC Acetaminophen (Tylenol) 650 mg PRN Q4HRS PRN PO FEVER; Start 06/26/19 at 19:30; Stop 06/27/19 at 16:37; Status DC Piperacillin Sod/ Tazobactam Sod 3.375 gm/Sodium Chloride 50 ml @ 100 mls/hr Q6HRS IV Last administered on 06/28/19 05:39; Start 06/27/19 at 00:00 Vancomycin HCl 1.5 gm/Sodium Chloride 500 ml @ 250 mls/hr Q8H IV Last administered on 06/28/19 10:04; Start 06/27/19 at 03:00 Vancomycin HCl (Vancomycin Trough Level) 1 each 1X ONCE MC Last administered on 06/27/19 18:30; Start 06/27/19 at 18:30; Stop 06/27/19 at 18:31; Status DC Acetaminophen/ Hydrocodone Bitart (Lortab 5/325) 1 tab PRN Q4HRS PRN PO MODERATE PAIN 4-6 Last administered on 06/28/19 05:40; Start 06/26/19 at 21:30 Diphenhydramine HCl (Benadryl) 25 mg PRN Q6HRS PRN PO MODERATE ITCHING Last ad ministered on 06/27/19 15:59; Start 06/27/19 at 00:45 Diphenhydramine HCl (Benadryl) 50 mg PRN Q6HRS PRN PO SEVERE ITCHING Last administered on 06/27/19 22:47; Start 06/27/19 at 00:45 Morphine Sulfate (Morphine Sulfate) 2 mg PRN Q2HR PRN IV SEVERE PAIN 7-10 Last administered on 06/27/19 16:26; Start 06/27/19 at 06:00 Hydroxyzine HCl (Atarax) 25 mg PRN Q6HRS PRN PO ITCHING Last administered on 06/28/19 05:40; Start 06/27/19 at 06:00 Sodium Chloride (Normal Saline Flush) 3 ml QSHIFT PRN IV AFTER MEDS AND BLOOD DRAWS; Start 06/27/19 at 11:15 Sodium Chloride 1,000 ml @ 100 mls/hr Q10H IV Last administered on 06/27/19 21:38; Start 06/27/19 at 11:05 Ondansetron HCl (Zofran) 4 mg PRN Q4HRS PRN IV NAUSEA/VOMITING; Start 06/27/19 at 11:15 Acetaminophen (Tylenol) 650 mg PRN Q4HRS PRN PO TEMP OVER 100.4F OR MILD PAIN; Start 06/27/19 at 11:15 Al Hydroxide/Mg Hydroxide (Mylanta Plus Xs) 30 ml PRN DAILY PRN PO HEARTBURN / GAS; Start 06/27/19 at 11:15 Clonidine HCl (Catapres) 0.1 mg PRN Q6HRS PRN PO SBP>160 OR DBP>90; Start 06/27/19 at 11:15 Docusate Sodium (Colace) 100 mg PRN BID PRN PO CONSTIPATION; Start 06/27/19 at 11:15; Stop 06/27/19 at 13:11; Status DC Albuterol Sulfate (Ventolin Neb Soln) 2.5 mg PRN Q4HRS PRN NEB SHORTNESS OF BREATH; Start 06/27/19 at 11:15 Guaifenesin (Robitussin) 200 mg PRN Q4HRS PRN PO COUGH; Start 06/27/19 at 11:15 Lorazepam (Ativan) 0.5 mg PRN Q4HRS PRN PO ANXIETY / AGITATION Last administered on 06/27/19at 21:29; Start 06/27/19 at 11:15 Enoxaparin Sodium (Lovenox 40mg Syringe) 40 mg DAILY SQ Last administered on 06/28/19at 10:05; Start 06/28/19 at 09:00 Fluconazole (Diflucan) 200 mg DAILY PO Last administered on 06/28/19at 10:04; Start 06/27/19 at 12:30 Sodium Chloride (Normal Saline Flush) 3 ml QSHIFT PRN IV AFTER MEDS AND BLOOD DRAWS; Start 06/27/19 at 13:00; Status Cancel Sodium Chloride 1,000 ml @ 100 mls/hr Q10H IV ; Start 06/27/19 at 12:53; Stop 06/27/19 at 13:21; Status DC Ondansetron HCl (Zofran) 4 mg PRN Q4HRS PRN IV NAUSEA/VOMITING; Start 06/27/19 at 13:00; Status UNV Acetaminophen (Tylenol) 650 mg PRN Q4HRS PRN PO TEMP OVER 100.4F OR HEADACHE; Start 06/27/19 at 13:00; Stop 06/27/19 at 13:19; Status DC Al Hydroxide/Mg Hydroxide (Mylanta Plus Xs) 30 ml PRN DAILY PRN PO HEARTBURN / GAS; Start 06/27/19 at 13:00; Stop 06/27/19 at 13:21; Status DC Clonidine HCl (Catapres) 0.1 mg PRN Q6HRS PRN PO SBP>160 OR DBP>90; Start 06/27/19 at 13:00; Status Cancel Docusate Sodium (Colace) 100 mg PRN BID PRN PO HARD STOOLS; Start 06/27/19 at 13:00 Albuterol Sulfate (Ventolin Neb Soln) 2.5 mg PRN Q4HRS PRN NEB SHORTNESS OF BREATH; Start 06/27/19 at 13:00; Status UNV Guaifenesin (Robitussin) 200 mg PRN Q4HRS PRN PO COUGH; Start 06/27/19 at 13:00; Status UNV Lorazepam (Ativan) 0.5 mg PRN Q4HRS PRN PO ANXIETY / AGITATION; Start 06/27/19 at 13:00; Status UNV Enoxaparin Sodium (Lovenox 40mg Syringe) 40 mg DAILY SQ ; Start 06/28/19 at 09:00; Status UNV Lactobacillus Rhamnosus (Culturelle) 1 cap BID PO Last administered on 06/28/19at 10:04; Start 06/27/19 at 21:00 Vitals/I & O Vital Sign - Last 24 Hours 06/27/19 06/27/19 06/27/19 06/27/19 11:30 11:32 11:45 12:02 Temp 98.4 98.4 Pulse 65 Resp 18 B/P (MAP) 130/80 (97) Pulse Ox 98 98 98 99 O2 Delivery Room Air Room Air Room Air 06/27/19 06/27/19 06/27/19 06/27/19 12:45 15:31 16:26 16:56 Temp 98.5 98.5 Pulse 91 Resp 18 B/P (MAP) 130/77 (94) Pulse Ox 99 99 99 100 O2 Delivery Room Air Room Air Room Air Room Air 06/27/19 06/27/19 06/27/19 06/27/19 17:14 19:06 20:20 21:30 Temp 98.7 98.7 Pulse 78 Resp 18 20 B/P (MAP) 110/52 (71) Pulse Ox 100 98 O2 Delivery Room Air Room Air Room Air Room Air 06/27/19 06/27/19 06/28/19 06/28/19 22:30 23:14 03:28 05:40 Temp 98.3 98.9 98.3 98.9 Pulse 69 58 Resp 20 18 20 20 B/P (MAP) 110/64 (79) 117/59 (78) Pulse Ox 98 98 O2 Delivery Room Air Room Air Room Air 06/28/19 06/28/19 06/28/19 06:40 07:00 08:00 Temp 97.7 97.7 Pulse 63 Resp 16 B/P (MAP) 105/60 (75) Pulse Ox 98 97 O2 Delivery Room Air Room Air Room Air Intake and Output 06/27/19 06/27/19 06/28/19 15:00 23:00 07:00 Intake Total 0 ml 1700 ml 750 ml Output Total 600 ml 2250 ml Balance 0 ml 1100 ml -1500 ml ERIK CASTRO MD Jun 28, 2019 11:27
[2019-06-28] MEDS: IV NORMAL SALINE 1000ML BAG 1,000 ML IV SCH ×2 (14:36→17:43)
[2019-06-28] MEDS: LINEZOLID 600 MG TABLET PO SCH ×2 (14:39→20:14)
[2019-06-28] MEDS: LORazepam 0.5 MG TABLET PO PRN (20:14)
[2019-06-28] MEDS: diphenhydrAMINE HCL 25 MG CAPSULE PO PRN (22:20)
[2019-06-29] MEDS: PIPERACILLIN/TAZOBACTAM 3.375 GM in IV NORMAL SALINE 50ML 50 ML IV SCH ×2 (00:02→06:00)
[2019-06-29 03:00] VITALS: BP 129/75
[2019-06-29] MEDS: IV NORMAL SALINE 1000ML BAG 1,000 ML IV SCH ×3 (04:49→23:05)
[2019-06-29] MEDS: HYDROcodone/APAP 5/325MG 1 TAB TABLET PO PRN ×2 (04:50→20:45)
[2019-06-29 07:00] VITALS: BP 130/77
--- NOTE | 2019-06-29 08:29 | PDOC ---
PROGRESS NOTES Chief Complaint Chief Complaint A/P: Dermatitis with secondary superimposed cellulitis involving lower extremities bilaterally and arms. History of laceration of right lower extremity from kicking a car window, healed. Leukocytosis, recent steroids. Lactic acidosis. Substance abuse. Heavy alcohol. Hypertension. PLAN ADMIT ANTIBIOTICS, ZOSYN, VANC ID CONSULT Wound care consulted BLOOD CULTURE HX ALCOHOL WITHDRAWAL PRECAUTIONS PRN empiric diflucan 11-10 LE RASH REMAINS SEVERE WITH INFLAMMATION, SKIN FISSURING RIGHT CALF 37 MIN PT EXAM, CHART REVIEW, > 50% OF TIME SPENT WITH EXAM, CHART REVIEW, PT CARE COORDINATION History of Present Illness History of Present Illness 34-year-old male who on 04/22 kicked a car window with his right leg resulting in a laceration on the posterior aspect of his ankle. He says he frequently washed the area with water and wrapped it in gauze. He traveled down to [place], swam in the ocean. He felt the wound was healing. Several weeks later while sleeping, his leg started to itch. He scratched some skin off and since has developed a rash primarily on the right posterior lower leg. He tried Neosporin and kept the area covered. He says as long as the area is kept moist, the pain is better controlled. Over the last week or so, he has developed a similar rash, developed on both arms and now left lower leg posteriorly. He was seen by urgent care and prescribed antihistamines and steroids for possible allergic reaction with minimal relief. He was again seen on followup. He was dosed with doxycycline with no relief. He has since been admitted and is currently on vancomycin and Zosyn. The patient says when he first cut his leg, he had some fevers and chills that has since settled down. About that time, his and children were also sick. He denies nausea, vomiting or diarrhea. Denies shortness of air, cough or chest discomfort. Denies headache, confusion, or sinus drainage. Denies joint pains. Denies dysuria, frequency or urgency. Denies history of skin infections. D enies other than the recent doxycycline, no other antibiotics within the last several months reported. He has been noting itching of his scalp, feels he has a fungal infection. D/w ID to continue antibiotics for another day prior to d/c. Will get zyvox on d/c. Vitals Vitals Vital Signs Date Time Temp Pulse Resp B/P (MAP) Pulse Ox O2 Delivery O2 Flow Rate FiO2 06/29/19 07:00 97.6 56 17 130/77 (94) 97 Room Air 97.6 Physical Exam Physical Exam GENERAL: Propped up in bed, alert, no apparent distress. HEENT: Oropharynx pink and moist. NECK: Supple. LUNGS: Clear to auscultation. HEART: S1, S2. ABDOMEN: Obese, soft, nontender with bowel sounds present. EXTREMITIES: No gross edema or cyanosis. He has a SEVERE erythematous type rash with peeling skin involving both forearms and lower extremities posteriorly, (RLE > LLE) arms look less red SKIN: Warm to touch. NEUROLOGIC: Alert and answering questions appropriately. PIV General: Alert, Oriented X3, Cooperative, No acute distress Abdomen: Normal bowel sounds, Soft Extremities: No cyanosis Assessment and Plan Assessmemt and Plan Problems Medical Problems: (1) Cellulitis Status: Acute (2) Sepsis Status: Acute Comment Review of Relevant I have reviewed the following items rafa (where applicable) has been applied. Labs Laboratory Tests Test 06/27/19 18:00 06/28/19 07:45 Vancomycin Level Trough 18.8 mcg/mL (10.0-20.0) Vancomycin Last Dose Date [id number] Vancomycin Last Dose Time 1100 White Blood Count 7.7 x10^3/uL (4.0-11.0) Red Blood Count 4.44 x10^6/uL (4.30-5.70) Hemoglobin 14.1 g/dL (13.0-17.5) Hematocrit 41.3 % (39.0-53.0) Mean Corpuscular Volume 93 fL (79-100) Mean Corpuscular Hemoglobin 32 pg (25-35) Mean Corpuscular Hemoglobin Concent 34 g/dL (31-37) Red Cell Distribution Width 12.9 % (11.5-14.5) Platelet Count 280 x10^3/uL (140-400) Sodium Level 143 mmol/L (136-145) Potassium Level 4.0 mmol/L (3.5-5.1) Chloride Level 109 mmol/L (98-107) Carbon Dioxide Level 26 mmol/L (21-32) Anion Gap 8 (6-14) Blood Urea Nitrogen 10 mg/dL (8-26) Creatinine 1.1 mg/dL (0.7-1.3) Estimated GFR (Cockcroft-Gault) 77.1 Glucose Level 87 mg/dL (70-99) Calcium Level 8.6 mg/dL (8.5-10.1) Microbiology 06/26/19 Blood Culture - Preliminary, Resulted NO GROWTH AFTER 2 DAYS Medications Current Medications Diphtheria/ Tetanus/Acell Pertussis (Boostrix) 0.5 ml ONCE ONCE VAX IM Last administered on 06/26/19at 19:19; Start 06/26/19 at 17:45; Stop 06/26/19 at 17:46; Status DC Sodium Chloride 1,000 ml @ 1,000 mls/hr 1X ONCE IV Last administered on 06/26/19at 18:05; Start 06/26/19 at 17:45; Stop 06/26/19 at 18:44; Status DC Sodium Chloride 1,000 ml @ 1,000 mls/hr 1X ONCE IV Last administered on 06/26/19at 19:14; Start 06/26/19 at 17:45; Stop 06/26/19 at 18:44; Status DC Fentanyl Citrate (Fentanyl 2ml Vial) 50 mcg 1X ONCE IVP Last administered on 06/26/19at 18:07; Start 06/26/19 at 18:00; Stop 06/26/19 at 18:01; Status DC Ondansetron HCl (Zofran) 4 mg 1X ONCE IV Last administered on 06/26/19 18:06; Start 06/26/19 at 18:00; Stop 06/26/19 at 18:01; Status DC Vancomycin HCl (Vanco Per Pharmacy) 1 each PRN DAILY PRN MC SEE COMMENTS Last administered on 06/27/19at 20:45; Start 06/26/19 at 18:15; Stop 06/28/19 at 12:38; Status DC Dobutamine HCl/ Dextrose 250 ml @ 0 mls/hr CONT PRN IV SEE I/O RECORD; Start 06/26/19 at 18:15; Status Cancel Vancomycin HCl 2 gm/Sodium Chloride 500 ml @ 250 mls/hr 1X ONCE IV Last administered on 06/26/19at 19:14; Start 06/26/19 at 18:15; Stop 06/26/19 at 20:14; Status DC Piperacillin Sod/ Tazobactam Sod (Zosyn Per Pharmacy) 1 each PRN DAILY PRN MC SEE COMMENTS; Start 06/26/19 at 19:00 Piperacillin Sod/ Tazobactam Sod 3.375 gm/Sodium Chloride 50 ml @ 100 mls/hr 1X ONCE IV Last administered on 06/26/19at 20:11; Start 06/26/19 at 19:15; Stop 06/26/19 at 19:44; Status DC Ondansetron HCl (Zofran) 4 mg PRN Q8HRS PRN IV NAUSEA/VOMITING; Start 06/26/19 at 19:30; Stop 06/27/19 at 16:38; Status DC Fentanyl Citrate (Fentanyl 2ml Vial) 50 mcg PRN Q1HR PRN IV PAIN Last administered on 06/27/19at 03:53; Start 06/26/19 at 19:30; Stop 06/27/19 at 19:29; Status DC Sodium Chloride 1,000 ml @ 100 mls/hr Q10H IV Last administered on 06/27/19at 18:39; Start 06/26/19 at 19:26; Stop 06/27/19 at 19:25; Status DC Acetaminophen (Tylenol) 650 mg PRN Q4HRS PRN PO FEVER; Start 06/26/19 at 19:30; Stop 06/27/19 at 16:37; Status DC Piperacillin Sod/ Tazobactam Sod 3.375 gm/Sodium Chloride 50 ml @ 100 mls/hr Q6HRS IV Last administered on 06/29/19at 06:00; Start 06/27/19 at 00:00 Vancomycin HCl 1.5 gm/Sodium Chloride 500 ml @ 250 mls/hr Q8H IV Last administered on 06/28/19at 10:04; Start 06/27/19 at 03:00; Stop 06/28/19 at 12:34; Status DC Vancomycin HCl (Vancomycin Trough Level) 1 each 1X ONCE MC Last administered on 06/27/19at 18:30; Start 06/27/19 at 18:30; Stop 06/27/19 at 18:31; Status DC Acetaminophen/ Hydrocodone Bitart (Lortab 5/325) 1 tab PRN Q4HRS PRN PO MODERATE PAIN 4-6 Last administered on 06/29/19at 04:50; Start 06/26/19 at 21:30 Diphenhydramine HCl (Benadryl) 25 mg PRN Q6HRS PRN PO MODERATE ITCHING Last administered on 06/27/19at 15:59; Start 06/27/19 at 00:45 Diphenhydramine HCl (Benadryl) 50 mg PRN Q6HRS PRN PO SEVERE ITCHING Last administered on 06/28/19at 22:20; Start 06/27/19 at 00:45 Morphine Sulfate (Morphine Sulfate) 2 mg PRN Q2HR PRN IV SEVERE PAIN 7-10 Last administered on 06/27/19at 16:26; Start 06/27/19 at 06:00 Hydroxyzine HCl (Atarax) 25 mg PRN Q6HRS PRN PO ITCHING Last administered on 06/28/19at 05:40; Start 06/27/19 at 06:00 Sodium Chloride (Normal Saline Flush) 3 ml QSHIFT PRN IV AFTER MEDS AND BLOOD DRAWS; Start 06/27/19 at 11:15 Sodium Chloride 1,000 ml @ 100 mls/hr Q10H IV Last administered on 06/29/19at 04:49; Start 06/27/19 at 11:05 Ondansetron HCl (Zofran) 4 mg PRN Q4HRS PRN IV NAUSEA/VOMITING; Start 06/27/19 at 11:15 Acetaminophen (Tylenol) 650 mg PRN Q4HRS PRN PO TEMP OVER 100.4F OR MILD PAIN; Start 06/27/19 at 11:15 Al Hydroxide/Mg Hydroxide (Mylanta Plus Xs) 30 ml PRN DAILY PRN PO HEARTBURN / GAS; Start 06/27/19 at 11:15 Clonidine HCl (Catapres) 0.1 mg PRN Q6HRS PRN PO SBP>160 OR DBP>90; Start 06/27 at 11:15 Docusate Sodium (Colace) 100 mg PRN BID PRN PO CONSTIPATION; Start 06/27/19 at 11:15; Stop 06/27/19 at 13:11; Status DC Albuterol Sulfate (Ventolin Neb Soln) 2.5 mg PRN Q4HRS PRN NEB SHORTNESS OF BREATH; Start 06/27/19 at 11:15 Guaifenesin (Robitussin) 200 mg PRN Q4HRS PRN PO COUGH; Start 06/27/19 at 11:15 Lorazepam (Ativan) 0.5 mg PRN Q4HRS PRN PO ANXIETY / AGITATION Last administered on 06/28/19at 20:14; Start 06/27/19 at 11:15 Enoxaparin Sodium (Lovenox 40mg Syringe) 40 mg DAILY SQ Last administered on 06/28/19at 10:05; Start 06/28/19 at 09:00 Fluconazole (Diflucan) 200 mg DAILY PO Last administered on 06/28/19at 10:04; Start 06/27/19 at 12:30 Sodium Chloride (Normal Saline Flush) 3 ml QSHIFT PRN IV AFTER MEDS AND BLOOD DRAWS; Start 06/27/19 at 13:00; Status Cancel Sodium Chloride 1,000 ml @ 100 mls/hr Q10H IV ; Start 06/27/19 at 12:53; Stop 06/27/19 at 13:21; Status DC Ondansetron HCl (Zofran) 4 mg PRN Q4HRS PRN IV NAUSEA/VOMITING; Start 06/27/19 at 13:00; Status UNV Acetaminophen (Tylenol) 650 mg PRN Q4HRS PRN PO TEMP OVER 100.4F OR HEADACHE; Start 06/27/19 at 13:00; Stop 06/27/19 at 13:19; Status DC Al Hydroxide/Mg Hydroxide (Mylanta Plus Xs) 30 ml PRN DAILY PRN PO HEARTBURN / GAS; Start 06/27/19 at 13:00; Stop 06/27/19 at 13:21; Status DC Clonidine HCl (Catapres) 0.1 mg PRN Q6HRS PRN PO SBP>160 OR DBP>90; Start 06/27/19 at 13:00; Status Cancel Docusate Sodium (Colace) 100 mg PRN BID PRN PO HARD STOOLS; Start 06/27/19 at 13:00 Albuterol Sulfate (Ventolin Neb Soln) 2.5 mg PRN Q4HRS PRN NEB SHORTNESS OF BREATH; Start 06/27/19 at 13:00; Status UNV Guaifenesin (Robitussin) 200 mg PRN Q4HRS PRN PO COUGH; Start 06/27/19 at 13:00; Status UNV Lorazepam (Ativan) 0.5 mg PRN Q4HRS PRN PO ANXIETY / AGITATION; Start 06/27/19 at 13:00; Status UNV Enoxaparin Sodium (Lovenox 40mg Syringe) 40 mg DAILY SQ ; Start 06/28/19 at 09:00; Status UNV Lactobacillus Rhamnosus (Culturelle) 1 cap BID PO Last administered on 06/28/19at 20:14; Start 06/27/19 at 21:00 Linezolid (Zyvox) 600 mg BID PO Last administered on 06/28/19at 20:14; Start 06/28/19 at 13:00 Vitals/I & O Vital Sign - Last 24 Hours 06/28/19 06/28/19 06/28/19 06/28/19 11:00 14:38 15:00 15:38 Temp 98.1 98.7 98.1 98.7 Pulse 57 60 Resp 12 20 B/P (MAP) 101/59 (73) 109/55 (73) Pulse Ox 98 98 100 98 O2 Delivery Room Air Room Air Room Air Room Air 06/28/19 06/28/19 06/28/19 06/28/19 17:13 17:20 19:00 20:10 Temp 97.9 98.1 97.9 98.1 Pulse 62 79 Resp 16 B/P (MAP) 111/79 (90) 137/77 (97) Pulse Ox 97 97 O2 Delivery Room Air Room Air Room Air Room Air 06/28/19 06/28/19 06/28/19 06/29/19 20:14 21:14 23:00 03:00 Temp 98.0 98.6 98.0 98.6 Pulse 63 68 Resp 20 20 16 16 B/P (MAP) 110/72 (85) 129/75 (93) Pulse Ox 94 96 O2 Delivery Room Air Room Air Room Air Room Air 06/29/19 06/29/19 06/29/19 04:50 05:50 07:00 Temp 97.6 97.6 Pulse 56 Resp 20 20 17 B/P (MAP) 130/77 (94) Pulse Ox 97 O2 Delivery Room Air Room Air Room Air Intake and Output 06/28/19 06/28/19 06/29/19 15:00 23:00 07:00 Intake Total 230 ml 300 ml 350 ml Output Total 500 ml 550 ml Balance 230 ml -200 ml -200 ml CY PENG MD Jun 29, 2019 08:29
[2019-06-29] MEDS: ENOXAPARIN 40 MG/0.4 ML SYRINGE. SQ SCH (08:42)
[2019-06-29] MEDS: LACTOBACILLUS RHAMNOSUS GG 1 CAPSULE. PO SCH ×2 (08:42→20:33)
[2019-06-29] MEDS: LINEZOLID 600 MG TABLET PO SCH ×2 (08:42→20:33)
[2019-06-29] MEDS: FLUCONAZOLE 100 MG TABLET. PO SCH (08:42)
--- NOTE | 2019-06-29 10:00 | NUR ---
Wound care: Patient seen per wound care consult for cellulitis to right lower leg and left arm. There are no open areas at this time. Right leg and left arm are reddened with dry skin irritation and edema. Recommendations for A & D ointment as prescribed. A & D ointment applied. No other areas noted. Will order A & D ointment for this patient. Wound care will sign off at this time. Please re consult if areas should reopen or any changes regarding wound care. Patient is independent. Bed lowered and call light in reach.
--- NOTE | 2019-06-29 10:20 | PDOC ---
Infectious Disease Note Subjective: Subjective Pt says feels better Feels rash some better, less red on arms and also some improvement in the legs No F/C/S/N/V/D ROS: ROS Negative otherwise. Vital Signs: Vital Signs Vital Signs Date Time Temp Pulse Resp B/P (MAP) Pulse Ox O2 Delivery O2 Flow Rate FiO2 06/29/19 08:30 Room Air 06/29/19 07:00 97.6 56 17 130/77 (94) 97 97.6 Physical Exam: PHYSICAL EXAM GENERAL: Propped up in bed, alert, no apparent distress. HEENT: Oropharynx pink and moist. NECK: Supple. LUNGS: Clear to auscultation. HEART: S1, S2. ABDOMEN: Obese, soft, nontender with bowel sounds present. EXTREMITIES: No gross edema or cyanosis. erythematous type rash with peeling skin involving both forearms and lower extremities posteriorly, (RLE > LLE) arms look less red ,improving overall SKIN: Warm to touch. NEUROLOGIC: Alert and answering questions appropriately. PIV Medications: Inpatient Meds: Current Medications Medications (Trade) Dose Ordered Sig/Justo Start Time Stop Time Status Last Admin Dose Admin Acetaminophen (Tylenol) 650 mg PRN Q4HRS PRN 06/27/19 13:00 06/27/19 13:19 DC Acetaminophen/ Hydrocodone Bitart (Lortab 5/325) 1 tab PRN Q4HRS PRN 06/26/19 21:30 06/29/19 04:50 1 TAB Al Hydroxide/Mg Hydroxide (Mylanta Plus Xs) 30 ml PRN DAILY PRN 06/27/19 13:00 06/27/19 13:21 DC Albuterol Sulfate (Ventolin Neb Soln) 2.5 mg PRN Q4HRS PRN 06/27/19 13:00 UNV Clonidine HCl (Catapres) 0.1 mg PRN Q6HRS PRN 06/27/19 13:00 Cancel Diphenhydramine HCl (Benadryl) 50 mg PRN Q6HRS PRN 06/27/19 00:45 06/28/19 22:20 50 MG Diphtheria/ Tetanus/Acell Pertussis (Boostrix) 0.5 ml ONCE ONCE 06/26/19 17:45 06/26/19 17:46 DC 06/26/19 19:19 0.5 ML Dobutamine HCl/ Dextrose 250 ml @ 0 mls/hr CONT PRN 06/26/19 18:15 Cancel Docusate Sodium (Colace) 100 mg PRN BID PRN 06/27/19 13:00 Enoxaparin Sodium (Lovenox 40mg Syringe) 40 mg DAILY 06/28/19 09:00 UNV Fentanyl Citrate (Fentanyl 2ml Vial) 50 mcg PRN Q1HR PRN 06/26/19 19:30 06/27/19 19:29 DC 06/27/19 03:53 50 MCG Fluconazole (Diflucan) 200 mg DAILY 06/27/19 12:30 06/29/19 08:42 200 MG Guaifenesin (Robitussin) 200 mg PRN Q4HRS PRN 06/27/19 13:00 UNV Hydroxyzine HCl (Atarax) 25 mg PRN Q6HRS PRN 06/27/19 06:00 06/28/19 05:40 25 MG Lactobacillus Rhamnosus (Culturelle) 1 cap BID 06/27/19 21:00 06/29/19 08:42 1 CAP Linezolid (Zyvox) 600 mg BID 06/28/19 13:00 06/29/19 08:42 600 MG Lorazepam (Ativan) 0.5 mg PRN Q4HRS PRN 06/27/19 13:00 UNV Morphine Sulfate (Morphine Sulfate) 2 mg PRN Q2HR PRN 06/27/19 06:00 06/27/19 16:26 2 MG Ondansetron HCl (Zofran) 4 mg PRN Q4HRS PRN 06/27/19 13:00 UNV Piperacillin Sod/ Tazobactam Sod (Zosyn Per Pharmacy) 1 each PRN DAILY PRN 06/26/19 19:00 Piperacillin Sod/ Tazobactam Sod 3.375 gm/Sodium Chloride 50 ml @ 100 mls/hr Q6HRS 06/27/19 00:00 06/29/19 06:00 100 MLS/HR Sodium Chloride 1,000 ml @ 100 mls/hr Q10H 06/27/19 12:53 06/27/19 13:21 DC Sodium Chloride (Normal Saline Flush) 3 ml QSHIFT PRN 06/27/19 13:00 Cancel Vancomycin HCl (Vanco Per Pharmacy) 1 each PRN DAILY PRN 06/26/19 18:15 06/28/19 12:38 DC 06/27/19 20:45 1 EACH Vancomycin HCl (Vancomycin Trough Level) 1 each 1X ONCE 06/27/19 18:30 06/27/19 18:31 DC 06/27/19 18:30 1 EACH Vancomycin HCl 1.5 gm/Sodium Chloride 500 ml @ 250 mls/hr Q8H 06/27/19 03:00 06/28/19 12:34 DC 06/28/19 10:04 250 MLS/HR Vancomycin HCl 2 gm/Sodium Chloride 500 ml @ 250 mls/hr 1X ONCE 06/26/19 18:15 06/26/19 20:14 DC 06/26/19 19:14 250 MLS/HR Vitamin A/Vitamin D (Vitamin A & D Ointment) 1 azar BID 06/29/19 11:00 Objective: Assessment: Rash involving posterior lower extremities bilaterally and arms with superimposed cellulitis -Dose doxy outpatient h/o laceration right lower extremity from kicking a car window, healed. Apr 2019 Leukocytosis, recent steroids Lactic acidosis Substance abuse Heavy alcohol Hypertension Plan: Plan of Care DC Zosyn cont linezolid and fluconazole if stable can dc home tomorrow Probiotics Wound care following consider derm consult for biopsy ? allergic reaction, underwent w/u by Workmans comp at outpt and was told that it was negative per pt report local care s/p tetanus shot here avoid picking on skin BUD PAUL MD Jun 29, 2019 10:20
[2019-06-29 11:00] VITALS: BP 133/93
[2019-06-29] MEDS: VITS A & D/LANOLIN TOPICAL OINTMENT 42GM TUBE. TP SCH ×2 (11:00→20:45)
--- NOTE | 2019-06-29 14:48 | NUR ---
HORTENCIA following. Chart reviewed, discussed with RN, pt is from home. Pt on abx here, wound care. Pt listed as self pay, [place], [facility] will meet with pt to determine if qualifies for medicaid. HORTENCIA will continue to follow. Addendum: 06/29/19 at 1552 by KYLAH BURNETT SW following. Pt will need Zyvox 600mg BID #10. H[facility]ENCIA met with pt to discuss zyvox assistance program, pt agreeable to this assistance. Pt reports he has not had this assistance before. HORTENCIA contacted the Zyvox assistance program (ph:[phone], fax: [phone]) and gave the requested information. HORTENCIA faxed script and face sheet to Zyvox Assistance Program. Pt qualifies for the assistance program, the Zyvox will be delivered to the patients home tomorrow (06/30/19).
[2019-06-29 15:00] VITALS: BP 117/76
[2019-06-29 19:00] VITALS: BP 132/87
[2019-06-29] MEDS: diphenhydrAMINE HCL 25 MG CAPSULE PO PRN (20:33)
[2019-06-29 23:00] VITALS: BP 139/87
[2019-06-30 03:00] VITALS: BP 129/72
[2019-06-30] MEDS: diphenhydrAMINE HCL 25 MG CAPSULE PO PRN (03:57)
[2019-06-30] MEDS: HYDROcodone/APAP 5/325MG 1 TAB TABLET PO PRN (03:58)
[2019-06-30 07:00] VITALS: BP 129/84
[2019-06-30] MEDS: LACTOBACILLUS RHAMNOSUS GG 1 CAPSULE. PO SCH (08:59)
[2019-06-30] MEDS: LINEZOLID 600 MG TABLET PO SCH (08:59)
[2019-06-30] MEDS: FLUCONAZOLE 100 MG TABLET. PO SCH (08:59)
[2019-06-30] MEDS: ENOXAPARIN 40 MG/0.4 ML SYRINGE. SQ SCH (09:00)
[2019-06-30] MEDS: VITS A & D/LANOLIN TOPICAL OINTMENT 42GM TUBE. TP SCH (09:00)
--- NOTE | 2019-06-30 09:00 | PDOC ---
PROGRESS NOTES Chief Complaint Chief Complaint A/P: Dermatitis with secondary superimposed cellulitis involving lower extremities bilaterally and arms. History of laceration of right lower extremity from kicking a car window, healed. Leukocytosis, recent steroids. Lactic acidosis. Substance abuse. Heavy alcohol. Hypertension. PLAN ADMIT ANTIBIOTICS, ZOSYN, VANC ID CONSULT Wound care consulted BLOOD CULTURE HX ALCOHOL WITHDRAWAL PRECAUTIONS PRN empiric diflucan 06-28 LE RASH REMAINS SEVERE WITH INFLAMMATION, SKIN FISSURING RIGHT CALF 37 MIN PT EXAM, CHART REVIEW, > 50% OF TIME SPENT WITH EXAM, CHART REVIEW, PT CARE COORDINATION History of Present Illness History of Present Illness 34-year-old male who on 04/22 kicked a car window with his right leg resulting in a laceration on the posterior aspect of his ankle. He says he frequently washed the area with water and wrapped it in gauze. He traveled down to [place], swam in the ocean. He felt the wound was healing. Several weeks later while sleeping, his leg started to itch. He scratched some skin off and since has developed a rash primarily on the right posterior lower leg. He tried Neosporin and kept the area covered. He says as long as the area is kept moist, the pain is better controlled. Over the last week or so, he has developed a similar rash, developed on both arms and now left lower leg posteriorly. He was seen by urgent care and prescribed antihistamines and steroids for possible allergic reaction with minimal relief. He was again seen on followup. He was dosed with doxycycline with no relief. He has since been admitted and is currently on vancomycin and Zosyn. The patient says when he first cut his leg, he had some fevers and chills that has since settled down. About that time, his and children were also sick. He denies nausea, vomiting or diarrhea. Denies shortness of air, cough or chest discomfort. Denies headache, confusion, or sinus drainage. Denies joint pains. Denies dysuria, frequency or urgency. Denies history of skin infections. D enies other than the recent doxycycline, no other antibiotics within the last several months reported. 06/29: He has been noting itching of his scalp, feels he has a fungal infection. D/w ID to continue antibiotics for another day prior to d/c. Will get zyvox on d/c. Feeling improved today, rash looks better. No pain complaints. Vitals Vitals Vital Signs Date Time Temp Pulse Resp B/P (MAP) Pulse Ox O2 Delivery O2 Flow Rate FiO2 06/30/19 07:00 97.9 84 17 129/84 (99) 100 Room Air 97.9 Physical Exam Physical Exam GENERAL: Propped up in bed, alert, no apparent distress. HEENT: Oropharynx pink and moist. NECK: Supple. LUNGS: Clear to auscultation. HEART: S1, S2. ABDOMEN: Obese, soft, nontender with bowel sounds present. EXTREMITIES: No gross edema or cyanosis. erythematous type rash with peeling skin involving both forearms and lower extremities posteriorly, (RLE > LLE) arms look less red ,improving overall SKIN: Warm to touch. NEUROLOGIC: Alert and answering questions appropriately. PIV General: Alert, Oriented X3, Cooperative, No acute distress Abdomen: Normal bowel sounds, Soft Extremities: No cyanosis Assessment and Plan Assessmemt and Plan Problems Medical Problems: (1) Cellulitis Status: Acute (2) Sepsis Status: Acute Comment Review of Relevant I have reviewed the following items rafa (where applicable) has been applied. Labs Microbiology 06/26/19 Blood Culture - Preliminary, Resulted NO GROWTH AFTER 3 DAYS Medications Current Medications Diphtheria/ Tetanus/Acell Pertussis (Boostrix) 0.5 ml ONCE ONCE VAX IM Last administered on 06/26/19at 19:19; Start 06/26/19 at 17:45; Stop 06/26/19 at 17:46; Status DC Sodium Chloride 1,000 ml @ 1,000 mls/hr 1X ONCE IV Last administered on 06/26/19at 18:05; Start 06/26/19 at 17:45; Stop 06/26/19 at 18:44; Status DC Sodium Chloride 1,000 ml @ 1,000 mls/hr 1X ONCE IV Last administered on 06/26/19at 19:14; Start 06/26/19 at 17:45; Stop 06/26/19 at 18:44; Status DC Fentanyl Citrate (Fentanyl 2ml Vial) 50 mcg 1X ONCE IVP Last administered on 06/26/19 18:07; Start 06/26/19 at 18:00; Stop 06/26/19 at 18:01; Status DC Ondansetron HCl (Zofran) 4 mg 1X ONCE IV Last administered on 06/26/19at 18:06; Start 06/26/19 at 18:00; Stop 06/26/19 at 18:01; Status DC Vancomycin HCl (Vanco Per Pharmacy) 1 each PRN DAILY PRN MC SEE COMMENTS Last administered on 06/27/19at 20:45; Start 06/26/19 at 18:15; Stop 06/28/19 at 12:38; Status DC Dobutamine HCl/ Dextrose 250 ml @ 0 mls/hr CONT PRN IV SEE I/O RECORD; Start 06/26/19 at 18:15; Status Cancel Vancomycin HCl 2 gm/Sodium Chloride 500 ml @ 250 mls/hr 1X ONCE IV Last administered on 06/26/19at 19:14; Start 06/26/19 at 18:15; Stop 06/26/19 at 20:14; Status DC Piperacillin Sod/ Tazobactam Sod (Zosyn Per Pharmacy) 1 each PRN DAILY PRN MC SEE COMMENTS; Start 06/26/19 at 19:00; Stop 06/29/19 at 11:01; Status DC Piperacillin Sod/ Tazobactam Sod 3.375 gm/Sodium Chloride 50 ml @ 100 mls/hr 1X ONCE IV Last administered on 06/26/19at 20:11; Start 06/26/19 at 19:15; Stop 06/26/19 at 19:44; Status DC Ondansetron HCl (Zofran) 4 mg PRN Q8HRS PRN IV NAUSEA/VOMITING; Start 06/26/19 at 19:30; Stop 06/27/19 at 16:38; Status DC Fentanyl Citrate (Fentanyl 2ml Vial) 50 mcg PRN Q1HR PRN IV PAIN Last administered on 06/27/19at 03:53; Start 06/26/19 at 19:30; Stop 06/27/19 at 19:29; Status DC Sodium Chloride 1,000 ml @ 100 mls/hr Q10H IV Last administered on 06/27/19at 18:39; Start 06/26/19 at 19:26; Stop 06/27/19 at 19:25; Status DC Acetaminophen (Tylenol) 650 mg PRN Q4HRS PRN PO FEVER; Start 06/26/19 at 19:30; Stop 06/27/19 at 16:37; Status DC Piperacillin Sod/ Tazobactam Sod 3.375 gm/Sodium Chloride 50 ml @ 100 mls/hr Q6HRS IV Last administered on 06/29/19at 06:00; Start 06/27/19 at 00:00; Stop 06/29/19 at 11:01; Status DC Vancomycin HCl 1.5 gm/Sodium Chloride 500 ml @ 250 mls/hr Q8H IV Last administered on 06/28/19at 10:04; Start 06/27/19 at 03:00; Stop 06/28/19 at 12:34; Status DC Vancomycin HCl (Vancomycin Trough Level) 1 each 1X ONCE MC Last administered on 06/27/19at 18:30; Start 06/27/19 at 18:30; Stop 06/27/19 at 18:31; Status DC Acetaminophen/ Hydrocodone Bitart (Lortab 5/325) 1 tab PRN Q4HRS PRN PO MODERATE PAIN 4-6 Last administered on 06/30/19 03:58; Start 06/26/19 at 21:30 Diphenhydramine HCl (Benadryl) 25 mg PRN Q6HRS PRN PO MODERATE ITCHING Last administered on 06/27/19 15:59; Start 06/27/19 at 00:45 Diphenhydramine HCl (Benadryl) 50 mg PRN Q6HRS PRN PO SEVERE ITCHING Last administered on 06/30/19 03:57; Start 06/27/19 at 00:45 Morphine Sulfate (Morphine Sulfate) 2 mg PRN Q2HR PRN IV SEVERE PAIN 7-10 Last administered on 06/27/19at 16:26; Start 06/27/19 at 06:00 Hydroxyzine HCl (Atarax) 25 mg PRN Q6HRS PRN PO ITCHING Last administered on 06/28/19 05:40; Start 06/27/19 at 06:00 Sodium Chloride (Normal Saline Flush) 3 ml QSHIFT PRN IV AFTER MEDS AND BLOOD DRAWS; Start 06/27/19 at 11:15 Sodium Chloride 1,000 ml @ 100 mls/hr Q10H IV Last administered on 06/29/19at 15:30; Start 06/27/19 at 11:05 Ondansetron HCl (Zofran) 4 mg PRN Q4HRS PRN IV NAUSEA/VOMITING; Start 06/27/19 at 11:15 Acetaminophen (Tylenol) 650 mg PRN Q4HRS PRN PO TEMP OVER 100.4F OR MILD PAIN; Start 06/27/19 at 11:15 Al Hydroxide/Mg Hydroxide (Mylanta Plus Xs) 30 ml PRN DAILY PRN PO HEARTBURN / GAS; Start 06/27/19 at 11:15 Clonidine HCl (Catapres) 0.1 mg PRN Q6HRS PRN PO SBP>160 OR DBP>90; Start 06/27/19 at 11:15 Docusate Sodium (Colace) 100 mg PRN BID PRN PO CONSTIPATION; Start 06/27/19 at 11:15; Stop 06/27/19 at 13:11; Status DC Albuterol Sulfate (Ventolin Neb Soln) 2.5 mg PRN Q4HRS PRN NEB SHORTNESS OF BREATH; Start 06/27/19 at 11:15 Guaifenesin (Robitussin) 200 mg PRN Q4HRS PRN PO COUGH; Start 06/27/19 at 11:15 Lorazepam (Ativan) 0.5 mg PRN Q4HRS PRN PO ANXIETY / AGITATION Last administered on 06/28/19at 20:14; Start 06/27/19 at 11:15 Enoxaparin Sodium (Lovenox 40mg Syringe) 40 mg DAILY SQ Last administered on 06/29/19at 08:42; Start 06/28/19 at 09:00 Fluconazole (Diflucan) 200 mg DAILY PO Last administered on 06/29/19at 08:42; Start 06/27/19 at 12:30 Sodium Chloride (Normal Saline Flush) 3 ml QSHIFT PRN IV AFTER MEDS AND BLOOD DRAWS; Start 06/27/19 at 13:00; Status Cancel Sodium Chloride 1,000 ml @ 100 mls/hr Q10H IV ; Start 06/27/19 at 12:53; Stop 06/27/19 at 13:21; Status DC Ondansetron HCl (Zofran) 4 mg PRN Q4HRS PRN IV NAUSEA/VOMITING; Start 06/27/19 at 13:00; Status UNV Acetaminophen (Tylenol) 650 mg PRN Q4HRS PRN PO TEMP OVER 100.4F OR HEADACHE; Start 06/27/19 at 13:00; Stop 06/27/19 at 13:19; Status DC Al Hydroxide/Mg Hydroxide (Mylanta Plus Xs) 30 ml PRN DAILY PRN PO HEARTBURN / GAS; Start 06/27/19 at 13:00; Stop 06/27/19 at 13:21; Status DC Clonidine HCl (Catapres) 0.1 mg PRN Q6HRS PRN PO SBP>160 OR DBP>90; Start 06/27/19 at 13:00; Status Cancel Docusate Sodium (Colace) 100 mg PRN BID PRN PO HARD STOOLS; Start 06/27/19 at 13:00 Albuterol Sulfate (Ventolin Neb Soln) 2.5 mg PRN Q4HRS PRN NEB SHORTNESS OF BREATH; Start 06/27/19 at 13:00; Status UNV Guaifenesin (Robitussin) 200 mg PRN Q4HRS PRN PO COUGH; Start 06/27/19 at 13:00; Status UNV Lorazepam (Ativan) 0.5 mg PRN Q4HRS PRN PO ANXIETY / AGITATION; Start 06/27/19 at 13:00; Status UNV Enoxaparin Sodium (Lovenox 40mg Syringe) 40 mg DAILY SQ ; Start 06/28/19 at 09:00; Status UNV Lactobacillus Rhamnosus (Culturelle) 1 cap BID PO Last administered on 06/29/19at 20:33; Start 06/27/19 at 21:00 Linezolid (Zyvox) 600 mg BID PO Last administered on 06/29/19at 20:33; Start 06/28/19 at 13:00 Vitamin A/Vitamin D (Vitamin A & D Ointment) 1 azar BID TP Last administered on 06/29/19at 20:45; Start 06/29/19 at 11:00 Vitals/I & O Vital Sign - Last 24 Hours 06/29/19 06/29/19 06/29/19 06/29/19 11:00 15:00 19:00 20:00 Temp 97.7 98.4 98.1 97.7 98.4 98.1 Pulse 58 64 65 Resp 17 17 19 B/P (MAP) 133/93 (106) 117/76 (90) 132/87 (102) Pulse Ox 100 99 98 O2 Delivery Room Air Room Air Room Air Room Air 06/29/19 06/29/19 06/29/19 06/30/19 20:45 21:45 23:00 03:00 Temp 98.3 98.5 98.3 98.5 Pulse 59 68 Resp 20 18 17 16 B/P (MAP) 139/87 (104) 129/72 (91) Pulse Ox 98 100 97 100 O2 Delivery Room Air Room Air Room Air Room Air 06/30/19 06/30/19 06/30/19 03:58 04:58 07:00 Temp 97.9 97.9 Pulse 84 Resp 20 18 17 B/P (MAP) 129/84 (99) Pulse Ox 100 100 100 O2 Delivery Room Air Room Air Room Air Intake and Output 06/29/19 06/29/19 06/30/19 15:00 23:00 07:00 Output Total 800 ml Balance -800 ml CY PENG MD Jun 30, 2019 09:00
--- NOTE | 2019-06-30 09:05 | NUR ---
Label for A&D oint. will not scan, entered manually.
--- NOTE | 2019-06-30 10:55 | PDOC ---
Infectious Disease Note Subjective: Subjective Pt says feels better Feels rash some better, less red on arms and also some improvement in the legs No F/C/S/N/V/D Vital Signs: Vital Signs Vital Signs Date Time Temp Pulse Resp B/P (MAP) Pulse Ox O2 Delivery O2 Flow Rate FiO2 06/30/19 08:00 Room Air 06/30/19 07:00 97.9 84 17 129/84 (99) 100 97.9 Physical Exam: PHYSICAL EXAM GENERAL: Propped up in bed, alert, no apparent distress. HEENT: Oropharynx pink and moist. NECK: Supple. LUNGS: Clear to auscultation. HEART: S1, S2. ABDOMEN: Obese, soft, nontender with bowel sounds present. EXTREMITIES: No gross edema or cyanosis. erythematous type rash with peeling skin involving both forearms and lower extremities posteriorly, (RLE > LLE) arms look less red ,improving overall SKIN: Warm to touch. NEUROLOGIC: Alert and answering questions appropriately. PIV Medications: Inpatient Meds: Current Medications Medications (Trade) Dose Ordered Sig/Justo Start Time Stop Time Status Last Admin Dose Admin Acetaminophen (Tylenol) 650 mg PRN Q4HRS PRN 06/27/19 13:00 06/27/19 13:19 DC Acetaminophen/ Hydrocodone Bitart (Lortab 5/325) 1 tab PRN Q4HRS PRN 06/26/19 21:30 06/30/19 03:58 1 TAB Al Hydroxide/Mg Hydroxide (Mylanta Plus Xs) 30 ml PRN DAILY PRN 06/27/19 13:00 06/27/19 13:21 DC Albuterol Sulfate (Ventolin Neb Soln) 2.5 mg PRN Q4HRS PRN 06/27/19 13:00 UNV Clonidine HCl (Catapres) 0.1 mg PRN Q6HRS PRN 06/27/19 13:00 Cancel Diphenhydramine HCl (Benadryl) 50 mg PRN Q6HRS PRN 06/27/19 00:45 06/30/19 03:57 50 MG Diphtheria/ Tetanus/Acell Pertussis (Boostrix) 0.5 ml ONCE ONCE 06/26/19 17:45 06/26/19 17:46 DC 06/26/19 19:19 0.5 ML Dobutamine HCl/ Dextrose 250 ml @ 0 mls/hr CONT PRN 06/26/19 18:15 Cancel Docusate Sodium (Colace) 100 mg PRN BID PRN 06/27/19 13:00 Enoxaparin Sodium (Lovenox 40mg Syringe) 40 mg DAILY 06/28/19 09:00 UNV Fentanyl Citrate (Fentanyl 2ml Vial) 50 mcg PRN Q1HR PRN 06/26/19 19:30 06/27/19 19:29 DC 06/27/19 03:53 50 MCG Fluconazole (Diflucan) 200 mg DAILY 06/27/19 12:30 06/30/19 08:59 200 MG Guaifenesin (Robitussin) 200 mg PRN Q4HRS PRN 06/27/19 13:00 UNV Hydroxyzine HCl (Atarax) 25 mg PRN Q6HRS PRN 06/27/19 06:00 06/28/19 05:40 25 MG Lactobacillus Rhamnosus (Culturelle) 1 cap BID 06/27/19 21:00 06/30/19 08:59 1 CAP Linezolid (Zyvox) 600 mg BID 06/28/19 13:00 06/30/19 08:59 600 MG Lorazepam (Ativan) 0.5 mg PRN Q4HRS PRN 06/27/19 13:00 UNV Morphine Sulfate (Morphine Sulfate) 2 mg PRN Q2HR PRN 06/27/19 06:00 06/27/19 16:26 2 MG Ondansetron HCl (Zofran) 4 mg PRN Q4HRS PRN 06/27/19 13:00 UNV Piperacillin Sod/ Tazobactam Sod (Zosyn Per Pharmacy) 1 each PRN DAILY PRN 06/26/19 19:00 06/29/19 11:01 DC Piperacillin Sod/ Tazobactam Sod 3.375 gm/Sodium Chloride 50 ml @ 100 mls/hr Q6HRS 06/27/19 00:00 06/29/19 11:01 DC 06/29/19 06:00 100 MLS/HR Sodium Chloride 1,000 ml @ 100 mls/hr Q10H 06/27/19 12:53 06/27/19 13:21 DC Sodium Chloride (Normal Saline Flush) 3 ml QSHIFT PRN 06/27/19 13:00 Cancel Vancomycin HCl (Vanco Per Pharmacy) 1 each PRN DAILY PRN 06/26/19 18:15 06/28/19 12:38 DC 06/27/19 20:45 1 EACH Vancomycin HCl (Vancomycin Trough Level) 1 each 1X ONCE 06/27/19 18:30 06/27/19 18:31 DC 06/27/19 18:30 1 EACH Vancomycin HCl 1.5 gm/Sodium Chloride 500 ml @ 250 mls/hr Q8H 06/27/19 03:00 06/28/19 12:34 DC 06/28/19 10:04 250 MLS/HR Vancomycin HCl 2 gm/Sodium Chloride 500 ml @ 250 mls/hr 1X ONCE 06/26/19 18:15 06/26/19 20:14 DC 06/26/19 19:14 250 MLS/HR Vitamin A/Vitamin D (Vitamin A & D Ointment) 1 azar BID 06/29/19 11:00 06/30/19 09:00 1 AZAR Objective: Assessment: Rash involving posterior lower extremities bilaterally and arms with superimposed cellulitis -Dose doxy outpatient h/o laceration right lower extremity from kicking a car window, healed. Apr 2019 Leukocytosis, recent steroids Lactic acidosis Substance abuse Heavy alcohol Hypertension Plan: Plan of Care cont linezolid and fluconazole ok to dc home today sw to assist with home abx Probiotics Wound care following local care s/p tetanus shot here avoid picking on skin d/w at bedside BUD PAUL MD Jun 30, 2019 10:55
[2019-06-30 11:00] VITALS: BP 132/86
[2019-06-30] MEDS ORDERED: Fluconazole PO (13:11)
[2019-06-30] MEDS ORDERED: LINE600T12 PO (13:11)
--- NOTE | 2019-06-30 13:14 | PDOC3 ---
Discharge Summary Visit Information Date of Admission: Jun 26, 2019 Date of Discharge: Jun 30, 2019 Admitting Diagnosis: Cellulitis Final Diagnosis Problems Medical Problems: (1) Cellulitis Status: Acute (2) Sepsis Status: Acute Brief Hospital Course Allergies Allergies Coded Allergies Type Severity Reaction Last Updated Verified No Known Drug Allergies 06/26/19 No Vital Signs Vital Signs Date Time Temp Pulse Resp B/P (MAP) Pulse Ox O2 Delivery O2 Flow Rate FiO2 06/30/19 11:00 97.8 60 17 132/86 (101) 98 Room Air 97.8 Brief Hospital Course Mr Núñez is a 34-year-old male who on 04/22 kicked a car window with his right leg resulting in a laceration on the posterior aspect of his ankle. He says he frequently washed the area with water and wrapped it in gauze. He traveled down to [place], swam in the ocean. He felt the wound was healing. Several weeks later while sleeping, his leg started to itch. He scratched some skin off and since has developed a rash primarily on the right posterior lower leg. He tried Neosporin and kept the area covered. He says as long as the area is kept moist, the pain is better controlled. Over the last week or so, he has developed a similar rash, developed on both arms and now left lower leg posteriorly. He was seen by urgent care and prescribed antihistamines and steroids for possible allergic reaction with minimal relief. He was again seen on followup. He was dosed with doxycycline with no relief. He has since been admitted and is currently on vancomycin and Zosyn. The patient says when he first cut his leg, he had some fevers and chills that has since settled down. About that time, his and children were also sick. He denies nausea, vomiting or diarrhea. Denies shortness of air, cough or chest discomfort. Denies headache, confusion, or sinus drainage. Denies joint pains. Denies dysuria, frequency or urgency. Denies history of skin infections. Denies other than the recent doxycycline, no other antibiotics within the last several months reported. 06/29: He has been noting itching of his scalp, feels he has a fungal infection. D/w ID to continue antibiotics for another day prior to d/c. Will get zyvox on d/c. Feeling improved, on 10 days of zyvox 600mg BID and diflucan 200mg for 7 days. A/P: Dermatitis with secondary superimposed cellulitis involving lower extremities bilaterally and arms. History of laceration of right lower extremity from kicking a car window, healed Leukocytosis, recent steroids Lactic acidosis Substance abuse Heavy alcohol Hypertension 37 MIN PT EXAM, CHART REVIEW, > 50% OF TIME SPENT WITH EXAM, CHART REVIEW, PT CARE COORDINATION Discharge Information Condition at Discharge: Improved Follow Up: Weeks (1) Disposition/Orders: D/C to Home Scheduled Linezolid (Zyvox) 600 Mg Tablet, 600 MG PO BID for Cellulitis for 10 Days, #20 Prescribed by: CY PENG MD on 06/30/19 1311 [Fluconazole] 100 MG TABLET, 200 MG PO DAILY for Cellulitis for 7 Days, #14 Prescribed by: CY PENG MD on 06/30/19 1311 CY PENG MD Jun 30, 2019 13:14
--- NOTE | 2019-06-30 14:45 | NUR ---
Addendum: completion note. Patient discharge to home with all belongings, instructions and prescriptions.
--- NOTE | 2019-06-30 14:45 | NUR ---
Discharge instructions, medications and prescriptions reviewed with patient, he verb. understanding all instructions and denies questions. Social Work Rebecca brought patient list of clinics for patient and Zyvox to be dilivered to patient home
--- NOTE | 2019-06-30 15:47 | NUR ---
SW following. Chart reviewed. SW met with pt to give self pay resources, pt is already aware of [employer] website and has the azar. Pt denied any further need for SW. SW reminded pt of his zyvox being delivered to his home today through the Zyvox assistance program. Pt discharged home with self care. No further SW needs.
[2019-07-01 17:10] LABS: ANA INTERP Negative (.)
== END 2019-06-30 14:45 | disposition home or self-care (01) | DRG 872 ==
LOC: ER 16:45 → 6 SOUTH 19:02 → 5 SOUTH 06-28 17:08
PROVIDERS: ADMIT Internal Medicine; ATTEND Internal Medicine
DX: A41.9 Sepsis, unspecified organism (principal); L03.116 Cellulitis of left lower limb; E66.01 Morbid (severe) obesity due to excess calories; F10.10 Alcohol abuse, uncomplicated; F17.210 Nicotine dependence, cigarettes, uncomplicated; I10 Essential (primary) hypertension; L30.9 Dermatitis, unspecified; S81.819A Laceration without foreign body, unspecified lower leg, initial encounter; Z82.49 Family history of ischemic heart disease and other diseases of the circulatory system; W18.39XA Other fall on same level, initial encounter; Y93.89 Activity, other specified; Y92.89 Other specified places as the place of occurrence of the external cause; Y99.8 Other external cause status; Z68.36 Body mass index [BMI] 36.0-36.9, adult
CPT/HCPCS: 36415; 73590; 80048; 80053; 80202; 80307; 81001; 82550; 83605; 84145; 85025; 85027; 85610; 86038; 87040; 90471; 90715; 93005; 93971; 96365; 96367; 96375; J1650; J2270; J2405; J2543; J3010; J3370; J7030; J7040; Q0163; 99285-25; G0378